=== PATIENT | male | born 1985 | race Two or more races ===

== ENCOUNTER 2016-11-07 01:30 | Emergency (ER) | payer OTHER ==
[~2016-11-07] VITALS: Ht 170.2 cm; Wt 63.0 kg
[~2016-11-07 01:30] MED LIST: Amox Tr/Potassium Clavulanate PO; DIVA125C PO; DULO60CA45 PO; FAMO20TA8 PO; QUET100T PO
[2016-11-07 01:39] VITALS: BP 135/70
[2016-11-07] MEDS ORDERED: ONDANSETRON HCL/PF 4 MG/2 ML VIAL ONE (01:40)
[2016-11-07] MEDS ORDERED: ONDANSETRON HCL/PF 4 MG/2 ML VIAL IM ONE (02:00)
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
== END 2016-11-07 02:44 | disposition home or self-care (01) ==
LOC: ER 01:33
DX: R11.2 Nausea with vomiting, unspecified (principal)
CPT/HCPCS: 96372; 99283; A4606; J2405; Z7610

== ENCOUNTER 2017-01-07 01:20 | Emergency (ER) | payer OTHER ==
[~2017-01-07] VITALS: Ht 157.5 cm; Wt 63.5 kg
[~2017-01-07 01:20] MED LIST changes: -Amox Tr/Potassium Clavulanate PO
--- NOTE | 2017-01-07 01:31 | NUR ---
PT BIB SELF, AMBULATORY TO ER BED 9. PT STATES HE IS FEELING SUICIDAL AND WANTS TO GO TO BE ADMITTED TO [facility]. PT AOX3 RR EVEN AND UNLABORED. NO SOB NOTED NAD NOTED. NO NVD AT THIS TIME. PT STATES ' I HAVE ON AND OFF THOUGHTS OF SI BUT NO PLAN" DENIES HI. PT RELAXED AND COMPLIANT. PT PLACED ON SUICIDE PRECAUTION. URINE COLLECTED.
--- NOTE | 2017-01-07 01:40 | NUR ---
LAB AT BEDSIDE FOR BLOOD DRAW.
[2017-01-07 01:59] LABS: APPEARANCE,URINE CLEAR (CLEAR); BILIRUBIN,URINE NEGATIVE (NEGATIVE); BLOOD, URINE NEGATIVE Ery/uL (NEGATIVE); COLOR,URINE YELLOW (YELLOW); KETONES,URINE NEGATIVE (NEGATIVE); LEUKOCYTE ESTERASE ,URINE NEGATIVE (NEGATIVE); NITRITE, URINE NEGATIVE (NEGATIVE); PROTEIN,URINE NEGATIVE (NEGATIVE); UGLUCOSE NEGATIVE (NEGATIVE); UROBILINOGEN,URINE 0.2 EU/dL (0.2)
[2017-01-07 02:02] LABS: BASOPHILS # (AUTO) 0.1 /CMM (0.0-0.2); BASOPHILS % (AUTO) 0.5 % (0.0-2.0); HEMATOCRIT 42 % (39-51); HEMOGLOBIN 14.1 g/dL (13.5-17.5); LYMPHOCYTES # (AUTO) 2.3 /CMM (0.8-4.8); LYMPHOCYTES % (AUTO) 9.2 % (20.0-44.0); MEAN CORPUSCULAR HEMOGLOBIN 30 PG (26.0-33.0); MEAN CORPUSCULAR HGB CONC 34 g/dl (31.0-36.0); MEAN CORPUSCULAR VOLUME 90 fL (80-96); MONOCYTES # (AUTO) 0.9 /CMM (0.1-1.30); MONOCYTES % (AUTO) 3.6 % (2.0-12.0); NEUTROPHILS # (AUTO) 21.4 /CMM (1.8-8.9); NEUTROPHILS % (AUTO) 86.7 % (43.0-81.0); PLATELET COUNT (AUTO) 371 /CMM (150-450); RDW COEFFICIENT OF VARIATION 14.6 (11.5-15.0); RED BLOOD CELL COUNT(AUTO) 4.69 MIL/uL (4.5-6.0); WHITE BLOOD COUNT (AUTO) 24.7 K/uL (4.3-11.0)
[2017-01-07 02:09] LABS: CALCIUM, SERUM 8.9 mg/dL (8.5-10.1); CARBON DIOXIDE 30 mmol/L (21-32); CHLORIDE 104 mmol/L (98-107); CREATININE 0.8 mg/dL (0.6-1.3); GLUCOSE 107 mg/dL (74-106); POTASSIUM 3.7 mmol/L (3.5-5.1); SODIUM SERUM 142 mmol/L (136-145); UREA NITROGEN, BLOOD 17 mg/dL (7-18)
[2017-01-07 02:13] LABS: ALANINE AMINOTRANSFERASE 24 U/L (12-78); ALBUMIN 4.2 g/dL (3.4-5.0); ALKALINE PHOSPHATASE 98 U/L (46-116); ASPARTATE AMINOTRANSFERASE 12 U/L (15-37); BILIRUBIN,TOTAL 0.2 mg/dL (0.2-1.0); SALICYLATE 4.9 mg/dL (2.8-20.0); TOTAL PROTEIN, SERUM 7.7 g/dL (6.4-8.2)
[2017-01-07 02:15] LABS: ACETAMINOPHEN 0 ug/ml (10-30); ALCOHOL, BLOOD < 3 mg/dL (0-0)
[2017-01-07 03:00] LABS: BAND % (MANUAL) 5 % (0.0-5.0); LYMPHOCYTES % (MANUAL) 11 % (16-48); MONOCYTES % (MANUAL) 4 % (0-11.0); NEUTROPHILS % (MANUAL) 80 (42-76)
--- NOTE | 2017-01-07 03:12 | NUR ---
ART AT BEDSIDE FOR EVAL.
[2017-01-07] MEDS ORDERED: AZITHROMYCIN 250 MG TABLET PO ONE (03:30)
[2017-01-07] MEDS ORDERED: AZITHROMYCIN 250 MG TABLET ONE (03:49)
--- NOTE | 2017-01-07 04:06 | NUR ---
Patient discharged to home in stable condition. Written and verbal after care instructions given. Patient verbalizes understanding of instruction. ambulatory with a steady gait. instructed pt not to drive. pt verbalize understanding.
[2017-01-07 04:10] VITALS: BP 109/78
== END 2017-01-07 04:11 | disposition home or self-care (01) ==
LOC: ER 01:21
DX: F32.9 Major depressive disorder, single episode, unspecified (principal); J18.9 Pneumonia, unspecified organism; Z88.0 Allergy status to penicillin; Z88.2 Allergy status to sulfonamides; F17.200 Nicotine dependence, unspecified, uncomplicated; F25.9 Schizoaffective disorder, unspecified
CPT/HCPCS: 36415; 71010-TC; 80048-TC; 80076-TC; 80305; 81000-TC; 85025-TC; A4606; G0480; Z7610

== ENCOUNTER 2017-02-04 14:05 | Emergency (ER) | payer OTHER ==
[~2017-02-04] VITALS: Ht 162.6 cm; Wt 68.0 kg
[2017-02-04 14:29] VITALS: BP 145/87
== END 2017-02-04 15:08 | disposition home or self-care (01) ==
LOC: ER 14:08
DX: G89.29 Other chronic pain (principal)
CPT/HCPCS: 99283; A4606; Z7610

== ENCOUNTER 2017-02-10 02:59 | Emergency (ER) | payer OTHER ==
[~2017-02-10] VITALS: Ht 157.5 cm; Wt 68.0 kg
--- NOTE | 2017-02-10 03:50 | NUR ---
TO BED 12 A 31 YO MALE PATIENT BB SELF; SI WITH PLAN; I WANT TO EAT RAT POISON. WITH PSYCH HISTORY. NAD NOTED. VSS. AMBULATORY WITH STEADY GAIT. SAFETY AND SUICIDE PRECAUTIONS IMPLEMENTED.
[2017-02-10 04:49] LABS: BASOPHILS # (AUTO) 0.2 /CMM (0.0-0.2); BASOPHILS % (AUTO) 1.3 % (0.0-2.0); EOSINOPHILS # (AUTO) 0.6 /CMM (0.0-0.7); EOSINOPHILS % (AUTO) 3.9 % (0.0-6.0); HEMATOCRIT 41 % (39-51); HEMOGLOBIN 13.4 g/dL (13.5-17.5); LYMPHOCYTES # (AUTO) 4.1 /CMM (0.8-4.8); LYMPHOCYTES % (AUTO) 28.6 % (20.0-44.0); MEAN CORPUSCULAR HEMOGLOBIN 30 PG (26.0-33.0); MEAN CORPUSCULAR HGB CONC 33 g/dl (31.0-36.0); MEAN CORPUSCULAR VOLUME 91 fL (80-96); MONOCYTES # (AUTO) 1.3 /CMM (0.1-1.30); MONOCYTES % (AUTO) 9.3 % (2.0-12.0); NEUTROPHILS # (AUTO) 8.2 /CMM (1.8-8.9); NEUTROPHILS % (AUTO) 56.9 % (43.0-81.0); PLATELET COUNT (AUTO) 365 /CMM (150-450); RDW COEFFICIENT OF VARIATION 14.5 (11.5-15.0); WHITE BLOOD COUNT (AUTO) 14.4 K/uL (4.3-11.0)
[2017-02-10] MEDS ORDERED: OLANZAPINE 5 MG/TAB.RAPDIS PO ONE (05:00)
[2017-02-10] MEDS ORDERED: OLANZAPINE 5 MG/TAB.RAPDIS ONE (05:01)
[2017-02-10] MEDS ORDERED: OLANZAPINE 5 MG TABLET ONE (05:02)
[2017-02-10 05:03] LABS: CALCIUM, SERUM 9.3 mg/dL (8.5-10.1); CARBON DIOXIDE 30 mmol/L (21-32); CHLORIDE 100 mmol/L (98-107); CREATININE 0.8 mg/dL (0.6-1.3); GLUCOSE 100 mg/dL (74-106); SODIUM SERUM 138 mmol/L (136-145); UREA NITROGEN, BLOOD 14 mg/dL (7-18)
[2017-02-10 05:05] LABS: APPEARANCE,URINE CLEAR (CLEAR); BILIRUBIN,URINE NEGATIVE (NEGATIVE); BLOOD, URINE NEGATIVE Ery/uL (NEGATIVE); COLOR,URINE YELLOW (YELLOW); KETONES,URINE NEGATIVE (NEGATIVE); LEUKOCYTE ESTERASE ,URINE NEGATIVE (NEGATIVE); NITRITE, URINE NEGATIVE (NEGATIVE); PROTEIN,URINE TRACE mg/dl (NEGATIVE); UGLUCOSE NEGATIVE (NEGATIVE); UROBILINOGEN,URINE 0.2 EU/dL (0.2)
[2017-02-10 05:08] LABS: ACETAMINOPHEN 0 ug/ml (10-30); ALANINE AMINOTRANSFERASE 27 U/L (12-78); ALCOHOL, BLOOD < 3 mg/dL (0-0); ALKALINE PHOSPHATASE 112 U/L (46-116); ASPARTATE AMINOTRANSFERASE 36 U/L (15-37); BILIRUBIN,DIRECT 0.1 mg/dL (0.0-0.2); BILIRUBIN,TOTAL 0.7 mg/dL (0.2-1.0); SALICYLATE 1.7 mg/dL (2.8-20.0); TOTAL PROTEIN, SERUM 7.5 g/dL (6.4-8.2)
[2017-02-10] MEDS ORDERED: OLANZAPINE 5 MG TABLET PO ONE (05:30)
[2017-02-10 05:33] LABS: INR 1.03 (0.87-1.13); PROTHROMBIN TIME 10.7 SECS (9.5-12.7)
[2017-02-10 05:34] LABS: BACTERIA,URINE None seen /HPF (None Seen); MUCUS,URINE Few /LPF (None Seen); RBC,URINE NONE SEEN /HPF (0-2); SQUAMOUS EPITHELIAL CELL,UR Few /HPF (None Seen); WBC,URINE 0-2 /HPF (0-3)
--- NOTE | 2017-02-10 07:04 | NUR ---
NAD NOTED. VSS. PATIENT IS SEEN RESTING. AWAITING FOR PSYCH EVAL.
--- NOTE | 2017-02-10 09:09 | NUR ---
sidney rn called for eval eta 1 hour
--- NOTE | 2017-02-10 11:25 | NUR ---
Patient is resting comfortably in bed with eyes closed. Easily aroused. VSS
--- NOTE | 2017-02-10 11:45 | NUR ---
PT ACCEPTED AT [facility]. DR SANTIAGO ACCEPTING. NUMBER FOR REPORT [phone] EXT [phone]
--- NOTE | 2017-02-10 11:51 | NUR ---
SPOKE WITH [place] FROM POISON CONTROL, RECOMMENDATION: PT INR FOR THE NEXT 3 DAYS Q12 D/T ANTICOAG EFFECT OF RAT POISON INTAKE.
--- NOTE | 2017-02-10 12:02 | NUR ---
report given to yumiko.
[2017-02-10 12:08] VITALS: BP 112/63
== END 2017-02-10 12:13 ==
LOC: ER 02:59
DX: T65.0X Toxic effect of cyanides (principal); R79.1 Abnormal coagulation profile; F15.10 Other stimulant abuse, uncomplicated; F12.10 Cannabis abuse, uncomplicated; F25.9 Schizoaffective disorder, unspecified; F17.200 Nicotine dependence, unspecified, uncomplicated; F32.9 Major depressive disorder, single episode, unspecified; Z88.0 Allergy status to penicillin; Z88.2 Allergy status to sulfonamides
CPT/HCPCS: 36415; 80048; 80076; 80305; 80329; 81001; 85025; 85610; 85730; 99285; A4606; G0480 ×2; Z7610; 81000-TC

== ENCOUNTER 2017-07-08 04:18 | Inpatient (IN) | payer OTHER ==
[~2017-07-08] VITALS: Ht 162.6 cm; Wt 61.2 kg
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
--- NOTE | 2017-07-08 04:59 | NUR ---
AT BEDSIDE FOR EVAL.
[2017-07-08 05:03] LABS: BASOPHILS # (AUTO) 0.1 /CMM (0.0-0.2); BASOPHILS % (AUTO) 0.7 % (0.0-2.0); EOSINOPHILS # (AUTO) 0.5 /CMM (0.0-0.7); EOSINOPHILS % (AUTO) 3.8 % (0.0-6.0); HEMATOCRIT 40 % (39-51); HEMOGLOBIN 13.5 g/dL (13.5-17.5); LYMPHOCYTES % (AUTO) 23.5 % (20.0-44.0); MEAN CORPUSCULAR HEMOGLOBIN 30 PG (26.0-33.0); MEAN CORPUSCULAR HGB CONC 34 g/dl (31.0-36.0); MEAN CORPUSCULAR VOLUME 88 fL (80-96); MONOCYTES # (AUTO) 0.7 /CMM (0.1-1.30); MONOCYTES % (AUTO) 5.3 % (2.0-12.0); NEUTROPHILS # (AUTO) 8.4 /CMM (1.8-8.9); NEUTROPHILS % (AUTO) 66.7 % (43.0-81.0); PLATELET COUNT (AUTO) 410 /CMM (150-450); RED BLOOD CELL COUNT(AUTO) 4.55 MIL/uL (4.5-6.0); WHITE BLOOD COUNT (AUTO) 12.6 K/uL (4.3-11.0)
[2017-07-08 05:15] LABS: CALCIUM, SERUM 9.6 mg/dL (8.5-10.1); CARBON DIOXIDE 27 mmol/L (21-32); CHLORIDE 101 mmol/L (98-107); CREATININE 0.9 mg/dL (0.6-1.3); GLUCOSE 111 mg/dL (74-106); POTASSIUM 3.7 mmol/L (3.5-5.1); SODIUM SERUM 139 mmol/L (136-145); UREA NITROGEN, BLOOD 23 mg/dL (7-18)
[2017-07-08 05:20] LABS: ALANINE AMINOTRANSFERASE 23 U/L (12-78); ALBUMIN 4.2 g/dL (3.4-5.0); ALCOHOL, BLOOD < 3 mg/dL (0-0); ALKALINE PHOSPHATASE 95 U/L (46-116); ASPARTATE AMINOTRANSFERASE 34 U/L (15-37); BILIRUBIN,DIRECT 0.1 mg/dL (0.0-0.2); BILIRUBIN,TOTAL 0.4 mg/dL (0.2-1.0); TOTAL PROTEIN, SERUM 7.9 g/dL (6.4-8.2)
[2017-07-08 05:24] LABS: ACETAMINOPHEN 0 ug/ml (10-30)
[2017-07-08 05:25] LABS: SALICYLATE 25.4 mg/dL (2.8-20.0)
[2017-07-08] MEDS ORDERED: ACTIVATED CHARCOAL 25 GM/120 ML TUBE ONE (05:52)
[2017-07-08] MEDS ORDERED: ACTIVATED CHARCOAL 25 GM/120 ML TUBE PO ONE (06:00)
--- NOTE | 2017-07-08 06:04 | NUR ---
PT REFUSED ACTIVATED CHARCOAL. RISK AND BENEFITS EXPLAINED X3. PT STRONGLY REFUSED. DR. CUEVAS MADE AWARE
[2017-07-08 06:15] LABS: APPEARANCE,URINE CLEAR (CLEAR); BILIRUBIN,URINE NEGATIVE (NEGATIVE); BLOOD, URINE NEGATIVE Ery/uL (NEGATIVE); COLOR,URINE YELLOW (YELLOW); KETONES,URINE 1+ (NEGATIVE); LEUKOCYTE ESTERASE ,URINE NEGATIVE (NEGATIVE); NITRITE, URINE NEGATIVE (NEGATIVE); PH,URINE 5.5 (5.0-8.0); PROTEIN,URINE NEGATIVE (NEGATIVE); UGLUCOSE NEGATIVE (NEGATIVE); UROBILINOGEN,URINE 0.2 EU/dL (0.2)
[2017-07-08 06:19] LABS: BACTERIA,URINE None seen /HPF (None Seen); RBC,URINE 0-2 /HPF (0-2); SQUAMOUS EPITHELIAL CELL,UR 0-2 /HPF (None Seen); WBC,URINE 0-2 /HPF (0-3)
--- NOTE | 2017-07-08 06:28 | NUR ---
DONELL PAGED AGAIN
--- NOTE | 2017-07-08 06:30 | NUR ---
DR. MARLEY SPEAKING TO DR. CUEVAS REGARDING POC/ ADMISSION
--- NOTE | 2017-07-08 06:48 | NUR ---
REPORT GIVEN TO CHRISTY
[2017-07-08] MEDS ORDERED: MAGNESIUM HYDROXIDE 30 ML UDC PO PRN (07:00)
[2017-07-08] MEDS ORDERED: ACETAMINOPHEN 325 MG TABLET PO PRN (07:00)
[2017-07-08] MEDS ORDERED: MAG HYDROX/AL HYDROX/SIMETH 30 ML UDC PO PRN (07:00)
[2017-07-08] MEDS ORDERED: Z GUARD REMEDY 2 OZ OINT TP PRN (07:00)
[2017-07-08] MEDS ORDERED: ONDANSETRON HCL/PF 4 MG/2 ML VIAL IVP PRN (07:00)
--- NOTE | 2017-07-08 07:30 | NUR ---
HARDWARE PRESS OPERATOR NOTES RECEIVED PT FROM ER. REPORT WAS GIVEN BY CHRISTY. PT VITAL SIGNS ARE STABLE, BUT PT IS CONFUSED AND AGITATED AT TIMES. WILL CONTINUE TO MONITOR PT CLOSELY.
--- NOTE | 2017-07-08 07:31 | NUR ---
MILL OPERATOR NOTES PT REFUSED TO BE ASSESSED REGARDING WOUNDS IN HIS BODY. EXPLAINED THE RISK AND BENEFITS OF CHECKING THE WOUNDS. PT STILL REFUSED.
[2017-07-08 07:43] VITALS: BP 109/67
[2017-07-08 08:00] VITALS: BP 109/67
--- NOTE | 2017-07-08 08:14 | NUR ---
SIZER HAND NOTES PT REFUSING TO HAVE IV ACCESS. EXPLAINED THE RISK AND BENEFITS. VERBALIZED THAT HE WANTS TO SLEEP. WILL TRY AGAIN LATER.
[2017-07-08] MEDS: IV NS 0.9% 1,000 ML IV SCH ×2 (08:51→17:12)
--- NOTE | 2017-07-08 11:52 | NUR ---
FILAMENT WELDER NOTES DR VALLES SEEN THE PT. ORDERED REPEAT SALICYLATE LEVEL. PSYCH CONSULT ONCE SALICYLATE LEVEL IS NORMAL.
[2017-07-08 12:00] VITALS: BP 95/56
--- NOTE | 2017-07-08 12:00 | NUR ---
NECKTIE TURNER NOTES CALLED DR GARCIA REGARDING PT CONSULTATION. LEAVED A MESSAGEDON HIS MAILBOX
[2017-07-08 16:00] VITALS: BP 98/52
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
--- NOTE | 2017-07-08 17:48 | NUR ---
DOPE EDGER NOTES CALLED [facility] REGARDING PT DISCHARGE ORDER.
--- NOTE | 2017-07-08 18:27 | NUR ---
SURVEY WORKERS SUPERVISOR CLOSING NOTES NO ACUTE CHANGES NOTED DURING THE SHIFT. PROVIDED COMFORT AND SAFERT. DUE MEDS GIVEN. WILL ENDORSE TO THE PM NURSE FOR PING.
--- NOTE | 2017-07-08 19:30 | NUR ---
DEMAND MANAGER NOTES NO SUICIDAL THOUGHTS NOTED DURING THE SHIFT. ENDORSE TO JACOBO MATTSON REGARDING PT DISCHARGE PLAN.
--- NOTE | 2017-07-08 19:35 | NUR ---
TELE/RN NOTES RECEIVED PT. LYING IN BED. PT. IS AWAKE, ALERT AND ORIENTED X4. BREATHING EVEN AND UNLABORED ON ROOM AIR. NO SOB, RESPIRATORY DISTRESS OR COMPLAINTS OF PAIN NOTED AT THIS TIME. PT. DENIES ANY SUICIDAL OR HOMICIDAL THOUGHTS AT THIS TIME. PT. REMOVED EXTERNAL DRYWALL FINISHING FOREMAN AND IS REFUSING TO HAVE IT PLACED BACK ON. PT. WITH LEFT WRIST 20 GAUGE IV SALINE LOCK PRESENT, PATENT AND INTACT. PER DAYSHIFT NURSE PT. IS GOING TO BE DISCHARGED AT 8:30 PM TO [facility] FOR REHAB MEDICINE. PT. IS REFUSING TAXI VOUCHER TO THE [place] AD[facility] WHICH [facility] [address] [facility] [place] [id number] AND WANTS TO LEAVE BY BUS AND HAS REQUESTED BUS TOKENS. PER DAYSHIFT NURSE PT. EXITCARE, BELONGINGS LIST ARE COMPLETES, ORIGINALS ARE SIGNED AND PLACED IN PT. CHART. WILL PROVIDE COPIES OF EXITCARE, BELONGINGS LIST AND DISCHARGE INSTRUCTIONS TO PT. WILL CONTINUE TO MONITOR.
[2017-07-08 20:00] VITALS: BP 105/59
--- NOTE | 2017-07-08 20:29 | NUR ---
TELE/RN NOTES PT. IN STABLE CONDITION. VITAL SIGNS STABLE AND WNL. PT. IS AWAKE, ALERT AND ORIENTED X4. BREATHING EVEN AND UNLABORED ON ROOM AIR. NO SOB, RESPIRATORY DISTRESS OR COMPLAINTS OF PAIN NOTED AT THIS TIME. PT. DENIES ANY SUICIDAL OR HOMICIDAL THOUGHTS AT THIS TIME. REMOVED PT. IV ACCESS. NO BLEEDING OR S/S OF INFECTION NOTED AT IV SITE. PT. PROVIDED WITH COPIES OF EXITCARE, BELONGINGS LIST AND DISCHARGE INSTRUCTIONS. BUS TOKENS PROVIDED TO PT. PT. LEFT THE FLOOR VIA WHEELCHAIR ACCOMPANIED BY SPLITTER TENDER AT 2028.
== END 2017-07-08 20:30 | disposition home or self-care (01) | DRG 812 ==
LOC: ER 04:21 → TELE-TD 06:52 → TELE1 07:09
PROVIDERS: ADMIT Internal Medicine; ATTEND Internal Medicine
DX: T39.011A Poisoning by aspirin, accidental (unintentional), initial encounter (principal); F20.9 Schizophrenia, unspecified; F32.9 Major depressive disorder, single episode, unspecified; F17.200 Nicotine dependence, unspecified, uncomplicated; F19.10 Other psychoactive substance abuse, uncomplicated; Y92.009 Unspecified place in unspecified non-institutional (private) residence as the place of occurrence of the external cause; Z79.899 Other long term (current) drug therapy; Z59.0 Homelessness; R51 Headache; F29 Unspecified psychosis not due to a substance or known physiological condition
CPT/HCPCS: 36415; 80048-TC; 80076-TC; 80305; 81000-TC; 85025-TC; A4606; G0480; J3490; J7030; Z7610

== ENCOUNTER 2019-07-13 06:13 | Emergency (ER) | payer OTHER ==
[~2019-07-13] VITALS: Ht 152.4 cm; Wt 59.0 kg
[~2019-07-13 06:13] MED LIST changes: -DIVA125C PO; +DIVA125C2 PO
--- NOTE | 2019-07-13 06:46 | NUR ---
PATIENT CAME TO ER BED 14 C/O OVERDOSE ON METH. PATIENT STATE, "I OVERDOSED ON DOPE, I HAD 2 GRAMS OF DOPE." PT IS AAOX3. NO SOB. BREATHING EVENLY AND UNLABORED. CONNECTED TO MONITOR.
[2019-07-13] MEDS ORDERED: OLANZAPINE 5 MG TABLET ONE (06:52)
[2019-07-13] MEDS ORDERED: LORAZEPAM INJ 2 MG/ML VIAL ONE ×3 (06:53→13:36)
--- NOTE | 2019-07-13 06:59 | NUR ---
ATIVAN [address]
[2019-07-13] MEDS ORDERED: LORAZEPAM INJ 2 MG/ML VIAL IM ONE ×2 (07:00→13:30)
[2019-07-13] MEDS ORDERED: OLANZAPINE 5 MG TABLET PO ONE (07:00)
[2019-07-13 07:18] LABS: BASOPHILS # (AUTO) 0.1 /CMM (0.0-0.2); BASOPHILS % (AUTO) 1.5 % (0.0-2.0); EOSINOPHILS % (AUTO) 3.7 % (0.0-6.0); HEMATOCRIT 42 % (39-51); HEMOGLOBIN 13.4 g/dL (13.5-17.5); LYMPHOCYTES % (AUTO) 27.1 % (20.0-44.0); MEAN CORPUSCULAR HGB CONC 32 g/dl (31.0-36.0); MEAN CORPUSCULAR VOLUME 86 fL (80-96); MONOCYTES # (AUTO) 0.9 /CMM (0.1-1.30); MONOCYTES % (AUTO) 12.6 % (2.0-12.0); NEUTROPHILS % (AUTO) 55.1 % (43.0-81.0); PLATELET COUNT (AUTO) 430 /CMM (150-450); RED BLOOD CELL COUNT(AUTO) 4.84 MIL/uL (4.5-6.0); WHITE BLOOD COUNT (AUTO) 7.2 K/uL (4.3-11.0)
--- NOTE | 2019-07-13 07:35 | NUR ---
PATIENT VERBALIZES SI, PLAN TO OVERDOSE ON DRUGS. MD AWARE.
[2019-07-13 07:37] LABS: CALCIUM, SERUM 9.5 mg/dL (8.5-10.1); CARBON DIOXIDE 28 mmol/L (21-32); CHLORIDE 100 mmol/L (98-107); CREATININE 0.8 mg/dL (0.6-1.3); GLUCOSE 86 mg/dL (74-106); POTASSIUM 3.2 mmol/L (3.5-5.1); SODIUM SERUM 139 mmol/L (136-145); UREA NITROGEN, BLOOD 16 mg/dL (7-18)
[2019-07-13 07:43] LABS: ALANINE AMINOTRANSFERASE 14 U/L (12-78); ALBUMIN 4.1 g/dL (3.4-5.0); ALKALINE PHOSPHATASE 111 U/L (46-116); ASPARTATE AMINOTRANSFERASE 20 U/L (15-37); BILIRUBIN,DIRECT 0.1 mg/dL (0.0-0.2); BILIRUBIN,TOTAL 0.5 mg/dL (0.2-1.0); TOTAL PROTEIN, SERUM 7.7 g/dL (6.4-8.2)
[2019-07-13 07:45] LABS: ACETAMINOPHEN 0 ug/ml (10-30); ALCOHOL, BLOOD < 3 mg/dL (0-0); SALICYLATE 1.7 mg/dL (2.8-20.0)
--- NOTE | 2019-07-13 08:49 | NUR ---
BREAKFAST TRAY PROVIDED, PATIENT TOLERATED PO WELL.
[2019-07-13 09:03] LABS: APPEARANCE,URINE CLEAR (CLEAR); BILIRUBIN,URINE SMALL (NEGATIVE); BLOOD, URINE NEGATIVE Ery/uL (NEGATIVE); COLOR,URINE YELLOW (YELLOW); KETONES,URINE TRACE (NEGATIVE); LEUKOCYTE ESTERASE ,URINE NEGATIVE (NEGATIVE); NITRITE, URINE NEGATIVE (NEGATIVE); PH,URINE 5.5 (5.0-8.0); PROTEIN,URINE 30 mg/dl (NEGATIVE); UGLUCOSE NEGATIVE (NEGATIVE); UROBILINOGEN,URINE 0.2 EU/dL (0.2)
[2019-07-13 09:07] LABS: BACTERIA,URINE Few /HPF (None Seen); MUCUS,URINE Many /LPF (None Seen); RBC,URINE 0-2 /HPF (0-2); SPERM,URINE Few /HPF (None Seen); SQUAMOUS EPITHELIAL CELL,UR Few /HPF (None Seen)
--- NOTE | 2019-07-13 10:41 | NUR ---
Pt Medically cleared for Crisis Form Stripper initial contact made with Darren Dhaliwal
--- NOTE | 2019-07-13 10:53 | NUR ---
Per Art Pt defer to SW-Call made to MARCELO Back
[2019-07-13] MEDS ORDERED: diphenhydrAMINE HCL 50 MG/ML VIAL IM ONE (11:00)
[2019-07-13] MEDS ORDERED: OLANZAPINE 10 MG VIAL IM ONE ×4 (11:00→13:35)
[2019-07-13] MEDS ORDERED: LORAZEPAM INJ 2 MG/ML VIAL IV ONE (11:00)
[2019-07-13] MEDS ORDERED: diphenhydrAMINE HCL 50 MG/ML VIAL ONE (11:03)
--- NOTE | 2019-07-13 12:06 | NUR ---
Social service consult requested by ER staff for drug overdose and suicidal ideation. Pt is a 34 year old male who was admitted to [facility] ER for homelessness. MARCELO met with pt at bedside. Pt was laying down in his bed and appeared disheveled. Pt was awake. SW asked pt if he was suicidal, pt said "yes." SW worker inquired about plan to overdose, and pt confirmed plan. MARCELO informed pt about referral to [facility] [[facility] MARCELO spoke with Darren Dhaliwal, Crisis Team, who confirmed that a referral needs to be made to [facility] [[address] [place] [address]; [phone]]. MARCELO faxed intake clinicals to community services coordinator at [phone]. MARCELO spoke with community services coordinator at [phone] who informed SW that the referral is being reviewed and will call back to confirm pts admission to psychiatric hospital. MARCELO will inform ER once pt is admitted to facility and transportation is confirmed.
--- NOTE | 2019-07-13 12:38 | NUR ---
SW received a call from Carmen, college admissions counselor at [facility] [[address] [place] [address]; [phone]], and was informed that pt will be admitted to the facility. The accepting doctor is Dr. Hiltno Robins, and the assigned room is 203-bed B. Follow-up information can be given to Unit 2 Charge Nurse at [[phone]]. Pt will be picked up by [facility] in about 45 minutes. No other services needed at this time. SW available if needed.
--- NOTE | 2019-07-13 12:40 | NUR ---
SPOKED TO BRITTANY ROBERTSON PT IS ACCEPTED TO [facility] GOING TO UNIT 2 ROOM 203-B NUMBER FOR REPORT: [phone] AMBULANCE ETA: 40MINS
--- NOTE | 2019-07-13 13:55 | NUR ---
[facility].
[2019-07-13 14:01] VITALS: BP 96/52
--- NOTE | 2019-07-13 14:10 | NUR ---
PATIENT PICKED UP BY [facility] UNIT 148 IN STABLE CONDITION. DOCUMENTS HANDED TO EMS TO PROVIDE TO [facility].
== END 2019-07-13 14:15 ==
LOC: ER 06:14
DX: F19.959 Other psychoactive substance use, unspecified with psychoactive substance-induced psychotic disorder, unspecified (principal); F15.10 Other stimulant abuse, uncomplicated; R45.851 Suicidal ideations; F17.200 Nicotine dependence, unspecified, uncomplicated; Z60.2 Problems related to living alone; Z79.899 Other long term (current) drug therapy
CPT/HCPCS: 36415; 80048; 80076; 80305; 80307; 80329; 81001; 85025; 87086; 96372 ×2; 99285; G0480; J1200; J2060 ×3; J3490 ×2; 81000-TC

== ENCOUNTER 2019-12-13 03:50 | Emergency (ER) | payer OTHER ==
[~2019-12-13] VITALS: Ht 152.4 cm; Wt 56.7 kg
--- NOTE | 2019-12-13 04:20 | NUR ---
PT BIBS C/O "I'M ALL DRUGGED OUT, I HAVE CHEST PAIN" TO ER BED 11 VSS
[2019-12-13] MEDS ORDERED: NITROGLYCERIN PACKET 1 GM PACKET TD ONE (04:30)
[2019-12-13] MEDS ORDERED: HALOPERIDOL LACTATE INJ 5 MG/ML VIAL IV ONE (04:30)
[2019-12-13] MEDS ORDERED: LORAZEPAM INJ 2 MG/ML VIAL IV ONE (04:30)
[2019-12-13] MEDS ORDERED: IV NS 0.9% 1,000 ML BAG IV ONE (04:30)
[2019-12-13] MEDS ORDERED: ASPIRIN 81 MG TAB.CHEW PO ONE (04:30)
[2019-12-13] MEDS ORDERED: LORAZEPAM INJ 2 MG/ML VIAL ONE (04:53)
[2019-12-13] MEDS ORDERED: NITROGLYCERIN PACKET 1 GM PACKET ONE (04:54)
[2019-12-13] MEDS ORDERED: ASPIRIN EC 81 MG TABLET.DR PO ONE (04:54)
[2019-12-13] MEDS ORDERED: HALOPERIDOL LACTATE INJ 5 MG/ML VIAL ONE (04:54)
[2019-12-13 05:00] LABS: BASOPHILS # (AUTO) 0.1 /CMM (0.0-0.2); BASOPHILS % (AUTO) 1.1 % (0.0-2.0); EOSINOPHILS % (AUTO) 2.6 % (0.0-6.0); HEMATOCRIT 39 % (39-51); HEMOGLOBIN 12.3 g/dL (13.5-17.5); LYMPHOCYTES # (AUTO) 2.2 /CMM (0.8-4.8); LYMPHOCYTES % (AUTO) 25.9 % (20.0-44.0); MEAN CORPUSCULAR HGB CONC 32 g/dl (31.0-36.0); MEAN CORPUSCULAR VOLUME 85 fL (80-96); MONOCYTES # (AUTO) 1.1 /CMM (0.1-1.30); MONOCYTES % (AUTO) 12.9 % (2.0-12.0); NEUTROPHILS # (AUTO) 4.9 /CMM (1.8-8.9); NEUTROPHILS % (AUTO) 57.5 % (43.0-81.0); PLATELET COUNT (AUTO) 420 /CMM (150-450); RED BLOOD CELL COUNT(AUTO) 4.51 MIL/uL (4.5-6.0); WHITE BLOOD COUNT (AUTO) 8.6 K/uL (4.3-11.0)
[2019-12-13 05:17] LABS: CALCIUM, SERUM 9.2 mg/dL (8.5-10.1); CARBON DIOXIDE 29 mmol/L (21-32); CHLORIDE 100 mmol/L (98-107); CREATININE 0.7 mg/dL (0.6-1.3); GLUCOSE 80 mg/dL (74-106); POTASSIUM 3.1 mmol/L (3.5-5.1); SODIUM SERUM 136 mmol/L (136-145); UREA NITROGEN, BLOOD 19 mg/dL (7-18)
[2019-12-13 05:21] LABS: ALANINE AMINOTRANSFERASE 19 U/L (12-78); ALBUMIN 3.9 g/dL (3.4-5.0); ALKALINE PHOSPHATASE 119 U/L (46-116); ASPARTATE AMINOTRANSFERASE 23 U/L (15-37); BILIRUBIN,DIRECT 0.2 mg/dL (0.0-0.2); BILIRUBIN,TOTAL 0.8 mg/dL (0.2-1.0); TOTAL PROTEIN, SERUM 7.5 g/dL (6.4-8.2)
--- NOTE | 2019-12-13 05:59 | NUR ---
ATTEMPTED TO WAKE UP PT TO ASK FOR URINE SAMPLE, PT IN DEEP SLEEP, AWARE
--- NOTE | 2019-12-13 07:26 | NUR ---
report given to vilma frederick for vasu
--- NOTE | 2019-12-13 07:41 | NUR ---
2nd TROPONIN DRAWN BY GOLD PROSPECTOR
--- NOTE | 2019-12-13 09:07 | NUR ---
SECURITY LOOKING FOR CLOTHES FOR PATIENT.
--- NOTE | 2019-12-13 09:21 | NUR ---
IV removed. Catheter intact and site benign. Pressure and 4x4 applied to site. No bleeding noted.Patient given written and verbal discharge instructions. Patient verbalizes understanding of instructions. Patient is ambulatory with steady gait. Refuses offer of long term placement. Patient given list of available shelters in surrounding area. Patient provided w proper clothing upon discharge. All belongings w patient, name band removed.
[2019-12-13 09:30] VITALS: BP 114/69
== END 2019-12-13 09:31 | disposition home or self-care (01) ==
LOC: ER 03:51
DX: R07.89 Other chest pain (principal); F17.200 Nicotine dependence, unspecified, uncomplicated; G89.29 Other chronic pain; F25.9 Schizoaffective disorder, unspecified; Z60.2 Problems related to living alone; Z79.899 Other long term (current) drug therapy
CPT/HCPCS: 36415; 71045; 80048; 80076; 84484 ×2; 85025; 93005 ×2; 96361; 96374; 96375; 99285; 99406; J1630; J2060; J7030

== ENCOUNTER 2019-12-21 23:12 | Emergency (ER) | payer OTHER ==
[~2019-12-21] VITALS: Ht 157.5 cm; Wt 59.0 kg
--- NOTE | 2019-12-21 23:30 | NUR ---
PT CAME TO THE ED C/O SI "OD ON DRUGS" -HI. PT REQUESTING CLEARANCE FOR VOLUNTARY PSYCH ADMISSION. PT AAOX4, VSS, RESPIRATIONS EVEN AND UNLABORED ON RA W/ NAD NOTED. PT CHANGED INTO GOWN, BELONGINGS PLACED TO LOCKER, SUICIDE PRECAUTIONS IMPLEMENTED. SITTER AT BEDSIDE FOR SAFETY
[2019-12-21 23:32] LABS: BASOPHILS # (AUTO) 0.2 /CMM (0.0-0.2); BASOPHILS % (AUTO) 1.4 % (0.0-2.0); EOSINOPHILS % (AUTO) 5.9 % (0.0-6.0); HEMATOCRIT 40 % (39-51); HEMOGLOBIN 12.9 g/dL (13.5-17.5); LYMPHOCYTES # (AUTO) 3.4 /CMM (0.8-4.8); LYMPHOCYTES % (AUTO) 26.4 % (20.0-44.0); MEAN CORPUSCULAR HGB CONC 32 g/dl (31.0-36.0); MEAN CORPUSCULAR VOLUME 85 fL (80-96); MONOCYTES # (AUTO) 1.5 /CMM (0.1-1.30); MONOCYTES % (AUTO) 11.4 % (2.0-12.0); NEUTROPHILS % (AUTO) 54.9 % (43.0-81.0); PLATELET COUNT (AUTO) 438 /CMM (150-450); RED BLOOD CELL COUNT(AUTO) 4.73 MIL/uL (4.5-6.0); WHITE BLOOD COUNT (AUTO) 12.7 K/uL (4.3-11.0)
[2019-12-21 23:35] LABS: APPEARANCE,URINE Clear (CLEAR); BILIRUBIN,URINE SMALL (NEGATIVE); BLOOD, URINE Negative Ery/uL (NEGATIVE); COLOR,URINE Yellow (YELLOW); KETONES,URINE Negative (NEGATIVE); LEUKOCYTE ESTERASE ,URINE Negative (NEGATIVE); NITRITE, URINE Negative (NEGATIVE); PROTEIN,URINE 100 mg/dl (NEGATIVE); UGLUCOSE Negative (NEGATIVE); UROBILINOGEN,URINE 0.2 EU/dL (0.2)
[2019-12-21 23:46] LABS: ALANINE AMINOTRANSFERASE 22 U/L (12-78); ALBUMIN 4.3 g/dL (3.4-5.0); ALKALINE PHOSPHATASE 130 U/L (46-116); ASPARTATE AMINOTRANSFERASE 26 U/L (15-37); BILIRUBIN,DIRECT 0.1 mg/dL (0.0-0.2); BILIRUBIN,TOTAL 0.5 mg/dL (0.2-1.0); CALCIUM, SERUM 10.1 mg/dL (8.5-10.1); CARBON DIOXIDE 30 mmol/L (21-32); CHLORIDE 98 mmol/L (98-107); CREATININE 0.9 mg/dL (0.6-1.3); GLUCOSE 135 mg/dL (74-106); SALICYLATE 0.6 mg/dL (2.8-20.0); SODIUM SERUM 137 mmol/L (136-145); TOTAL PROTEIN, SERUM 8.8 g/dL (6.4-8.2); UREA NITROGEN, BLOOD 13 mg/dL (7-18)
[2019-12-21 23:48] LABS: ACETAMINOPHEN < 2 ug/ml (10-30); ALCOHOL, BLOOD < 3 mg/dL (0-0)
[2019-12-21 23:54] LABS: BACTERIA,URINE Rare /HPF (None Seen); RBC,URINE NONE SEEN /HPF (0-2); SQUAMOUS EPITHELIAL CELL,UR Few /HPF (None Seen); WBC,URINE NONE SEEN /HPF (0-3)
[2019-12-22] MEDS ORDERED: POTASSIUM CHLORIDE 20 MEQ TAB.PRT.SR PO ONE (01:06)
[2019-12-22] MEDS: POTASSIUM CHLORIDE 20 MEQ TAB.PRT.SR PO ONE ×2 (01:08)
--- NOTE | 2019-12-22 04:13 | NUR ---
PT RESTING COMFORTABLY IN BED. VSS. NO ACUTE DISTRESS NOTED. SITTER AT BEDSIDE FOR SAFETY
--- NOTE | 2019-12-22 06:21 | NUR ---
PT ACCEPTED TO [facility] BY DR SANTIAGO. UNIT 2. # FOR REPORT [phone]
--- NOTE | 2019-12-22 06:26 | NUR ---
[facility] CALLED FOR TRANSPORT. # [phone]. PENDING ETA.
--- NOTE | 2019-12-22 06:34 | NUR ---
[facility] ETA 45-60 MIN
--- NOTE | 2019-12-22 06:36 | NUR ---
REPORT GIVEN TO TWILA GONZALEZ [facility] FOR PING
[2019-12-22 06:59] VITALS: BP 113/79
--- NOTE | 2019-12-22 07:08 | NUR ---
FOOD TRAY ORDERED FROM [facility]
--- NOTE | 2019-12-22 07:26 | NUR ---
PICKED UP BY [facility] UNIT 180 IN STABLE CONDITION. PATIENT WILL BE TRANSFERRED TO [facility]. CLINICALS PROVIDED TO EMS TO BE GIVEN TO THE HOSPITAL.
== END 2019-12-22 07:28 ==
LOC: ER 23:16
DX: R45.851 Suicidal ideations (principal); F15.10 Other stimulant abuse, uncomplicated; F25.9 Schizoaffective disorder, unspecified; F19.10 Other psychoactive substance abuse, uncomplicated; G89.29 Other chronic pain; Z60.2 Problems related to living alone; Z79.899 Other long term (current) drug therapy
CPT/HCPCS: 36415 ×2; 80048; 80076; 80305; 80307; 80329; 81001; 84132; 85025; 99285; G0480; 81000-TC

== ENCOUNTER 2019-12-30 23:16 | Emergency (ER) | payer OTHER ==
[~2019-12-30] VITALS: Ht 157.5 cm; Wt 52.2 kg
--- NOTE | 2019-12-30 23:19 | NUR ---
PATIENT CAME TO ER BED 13 C/O SUICIDAL IDEATIONPATIENT STATES, "I DON'T KNOW MAN, I'M SUICIDAL, I GUESS ON METH?" PATIENT IS AAOX4. NO SOB. BREATHING EVENLY AND UNLABORED ON ROOM AIR. PATIENT IS AMBULATORY WITH A STEADY GAIT. PATIENT'S ITEMS ARE REMOVED AND PLACED INTO A SAFE LOCKER. CHANGED INTO A GOWN.
[2019-12-30] MEDS ORDERED: LIDOCAINE 2% JEL UROJET 10 ML MM ONE (23:32)
--- NOTE | 2019-12-30 23:33 | NUR ---
PATIENT IS WANDED BY SECURITY.
--- NOTE | 2019-12-30 23:46 | NUR ---
URINE COLLECTED AND SENT TO THE LAB.
[2019-12-31 00:11] LABS: APPEARANCE,URINE CLEAR (CLEAR); BILIRUBIN,URINE NEGATIVE (NEGATIVE); BLOOD, URINE NEGATIVE Ery/uL (NEGATIVE); COLOR,URINE YELLOW (YELLOW); KETONES,URINE NEGATIVE (NEGATIVE); LEUKOCYTE ESTERASE ,URINE NEGATIVE (NEGATIVE); NITRITE, URINE NEGATIVE (NEGATIVE); PROTEIN,URINE TRACE mg/dl (NEGATIVE); UGLUCOSE NEGATIVE (NEGATIVE); UROBILINOGEN,URINE 0.2 EU/dL (0.2)
[2019-12-31 00:12] LABS: BASOPHILS # (AUTO) 0.2 /CMM (0.0-0.2); BASOPHILS % (AUTO) 2.8 % (0.0-2.0); EOSINOPHILS % (AUTO) 5.9 % (0.0-6.0); HEMATOCRIT 40 % (39-51); HEMOGLOBIN 12.7 g/dL (13.5-17.5); LYMPHOCYTES # (AUTO) 2.2 /CMM (0.8-4.8); LYMPHOCYTES % (AUTO) 25.6 % (20.0-44.0); MEAN CORPUSCULAR HGB CONC 32 g/dl (31.0-36.0); MEAN CORPUSCULAR VOLUME 85 fL (80-96); MONOCYTES # (AUTO) 0.7 /CMM (0.1-1.30); MONOCYTES % (AUTO) 8.2 % (2.0-12.0); NEUTROPHILS % (AUTO) 57.5 % (43.0-81.0); PLATELET COUNT (AUTO) 431 /CMM (150-450); RED BLOOD CELL COUNT(AUTO) 4.68 MIL/uL (4.5-6.0); WHITE BLOOD COUNT (AUTO) 8.6 K/uL (4.3-11.0)
[2019-12-31 00:19] LABS: RBC,URINE 0-2 /HPF (0-2); WBC,URINE 0-2 /HPF (0-3)
[2019-12-31 00:20] LABS: BACTERIA,URINE Few /HPF (None Seen); SQUAMOUS EPITHELIAL CELL,UR Few /HPF (None Seen)
[2019-12-31 00:31] LABS: ALANINE AMINOTRANSFERASE 20 U/L (12-78); ALBUMIN 3.9 g/dL (3.4-5.0); ALCOHOL, BLOOD < 3 mg/dL (0-0); ALKALINE PHOSPHATASE 116 U/L (46-116); ASPARTATE AMINOTRANSFERASE 20 U/L (15-37); BILIRUBIN,DIRECT 0.1 mg/dL (0.0-0.2); BILIRUBIN,TOTAL 0.5 mg/dL (0.2-1.0); CALCIUM, SERUM 9.2 mg/dL (8.5-10.1); CARBON DIOXIDE 31 mmol/L (21-32); CHLORIDE 99 mmol/L (98-107); CREATININE 0.9 mg/dL (0.6-1.3); GLUCOSE 106 mg/dL (74-106); SODIUM SERUM 137 mmol/L (136-145); TOTAL PROTEIN, SERUM 7.4 g/dL (6.4-8.2); UREA NITROGEN, BLOOD 16 mg/dL (7-18)
[2019-12-31 00:32] LABS: ACETAMINOPHEN 0 ug/ml (10-30); POTASSIUM 2.8 mmol/L (3.5-5.1); SALICYLATE 0.8 mg/dL (2.8-20.0)
[2019-12-31] MEDS ORDERED: POTASSIUM CHLORIDE 20 MEQ TAB.PRT.SR PO ONE ×2 (00:47→01:00)
--- NOTE | 2019-12-31 00:50 | NUR ---
PATIENT IS SLEEPING. EASILY AROUSABLE THROUGH TACTILE AND VERBAL STIMULI. CONNECTED TO MONITOR. BREATHING EVENLY AND UNLABORED ON ROOM AIR. SITTER AT BEDSIDE.
--- NOTE | 2019-12-31 03:19 | NUR ---
PATIENT IS SLEEPING. EASILY AROUSABLE THROUGH TOUCH AND VERBAL STIMULI. CONNECTED TO THE MONITOR. BREATHING EVENLY AND UNLABORED ON ROOM AIR. SITTER AT BEDSIDE. SIDE RAILS ARE UP FOR SAFETY OF THE PATIENT.
--- NOTE | 2019-12-31 04:40 | NUR ---
AMPOULE SEALER AT BEDSIDE FOR BLOOD DRAW
--- NOTE | 2019-12-31 08:16 | NUR ---
Assumed care report patient asleep non discomfort back to sleep no agitatio nno hallucination continue to monitor .
--- NOTE | 2019-12-31 09:04 | NUR ---
Patient asleep but arousable remain calm no agitation refused breakfast @ this time
--- NOTE | 2019-12-31 09:47 | NUR ---
Patient awake Breakfast served appreciated patient made awre plan of care .
--- NOTE | 2019-12-31 12:54 | NUR ---
Patient asllep but arousable non distress remain calm follows command
--- NOTE | 2019-12-31 15:30 | NUR ---
facesheet and clinicals [facility] to [facility].
--- NOTE | 2019-12-31 15:43 | NUR ---
pt sleeping easily arousable. cooperative. ask for food and milk. on monitor. stable vitals. sitter at bedside.
--- NOTE | 2019-12-31 16:11 | NUR ---
provided w/ meal tray.
--- NOTE | 2019-12-31 16:21 | NUR ---
Patient awake alert no\n distress no ghallucination no agitaion sitter @ bedside room check for manager drug safety @ bedside
--- NOTE | 2019-12-31 20:08 | NUR ---
SPOKE WITH KINJAL FROM [facility], NO BEDS AVAILABLE AT THIS TIME
--- NOTE | 2020-01-01 00:48 | NUR ---
SPOKE WITH [facility], ACCEPTING MD IS KERRI. PHONE NUMBER FOR REPORT IS EXT:[phone].
--- NOTE | 2020-01-01 00:59 | NUR ---
CALLED CALL THE CAR FOR TRANSPORTATION. WILL CALL BACK WITH ETA. RESERVATION #[id number]
--- NOTE | 2020-01-01 01:23 | NUR ---
[facility] ETA 2034
--- NOTE | 2020-01-01 01:45 | NUR ---
REPORT GIVEN TO TWILA AWAD FROM [facility] FOR PING
--- NOTE | 2020-01-01 02:50 | NUR ---
REPORT GIVEN TO [facility] FOR TRANSPORTATION PING
[2020-01-01 02:54] VITALS: BP 102/79
== END 2020-01-01 02:56 ==
LOC: ER 23:18
DX: R45.851 Suicidal ideations (principal); F15.10 Other stimulant abuse, uncomplicated; F25.9 Schizoaffective disorder, unspecified; G89.29 Other chronic pain; F17.200 Nicotine dependence, unspecified, uncomplicated; Z60.2 Problems related to living alone; Z79.899 Other long term (current) drug therapy; Z04.6 Encounter for general psychiatric examination, requested by authority
CPT/HCPCS: 36415 ×2; 80048; 80076; 80305; 80307; 80329; 81001; 84132; 85025; 99285; 99406; G0480; J3490; 81000-TC

== ENCOUNTER 2020-01-12 22:29 | Emergency (ER) | payer OTHER ==
[~2020-01-12] VITALS: Ht 154.9 cm; Wt 54.4 kg
--- NOTE | 2020-01-12 23:30 | NUR ---
PT AMBULATORY TO ER BED 15, +SI PLANS TO OVERDOSE, -HI, PT ADMITS TO "DOING TOO MUCH DOPE" PT AOX4 RR EVEN AND UNLABORED. RR EVEN AND UNLABORED. NO SOB NOTED. NO NVD AT THIS TIME. PT GOWNED, PERSONAL BELONGINGS PLACED IN SECURED LOCKER AND LABELED, SECUIRTY AT BEDSIDE FOR WANDING. SITTER WITHIN LINE OF SIGHT. PT PROVIDED WITH URINAL FOR UA SPECIMEN. PT WAITING FOR MD ESTRADA.
--- NOTE | 2020-01-12 23:45 | NUR ---
LAB AT BEDSIDE FOR BLOOD DRAW
--- NOTE | 2020-01-12 23:50 | NUR ---
URINE COLLECTED. SENT TO LAB
[2020-01-12 23:52] LABS: BASOPHILS # (AUTO) 0.2 /CMM (0.0-0.2); BASOPHILS % (AUTO) 2.2 % (0.0-2.0); EOSINOPHILS % (AUTO) 4.9 % (0.0-6.0); HEMATOCRIT 40 % (39-51); HEMOGLOBIN 13.1 g/dL (13.5-17.5); LYMPHOCYTES # (AUTO) 2.5 /CMM (0.8-4.8); LYMPHOCYTES % (AUTO) 32.6 % (20.0-44.0); MEAN CORPUSCULAR HGB CONC 33 g/dl (31.0-36.0); MEAN CORPUSCULAR VOLUME 84 fL (80-96); MONOCYTES % (AUTO) 12.4 % (2.0-12.0); NEUTROPHILS # (AUTO) 3.7 /CMM (1.8-8.9); NEUTROPHILS % (AUTO) 47.9 % (43.0-81.0); PLATELET COUNT (AUTO) 427 /CMM (150-450); RED BLOOD CELL COUNT(AUTO) 4.76 MIL/uL (4.5-6.0); WHITE BLOOD COUNT (AUTO) 7.7 K/uL (4.3-11.0)
[2020-01-12 23:56] LABS: APPEARANCE,URINE CLEAR (CLEAR); BILIRUBIN,URINE SMALL (NEGATIVE); BLOOD, URINE NEGATIVE Ery/uL (NEGATIVE); COLOR,URINE YELLOW (YELLOW); KETONES,URINE TRACE (NEGATIVE); LEUKOCYTE ESTERASE ,URINE NEGATIVE (NEGATIVE); NITRITE, URINE NEGATIVE (NEGATIVE); PROTEIN,URINE 30 mg/dl (NEGATIVE); UGLUCOSE NEGATIVE (NEGATIVE); UROBILINOGEN,URINE 0.2 EU/dL (0.2)
[2020-01-12 23:58] LABS: CALCIUM, SERUM 9.6 mg/dL (8.5-10.1); CARBON DIOXIDE 31 mmol/L (21-32); CHLORIDE 98 mmol/L (98-107); CREATININE 0.8 mg/dL (0.6-1.3); GLUCOSE 91 mg/dL (74-106); POTASSIUM 3.2 mmol/L (3.5-5.1); SODIUM SERUM 139 mmol/L (136-145); UREA NITROGEN, BLOOD 18 mg/dL (7-18)
[2020-01-13 00:06] LABS: ALANINE AMINOTRANSFERASE 22 U/L (12-78); ALBUMIN 4.4 g/dL (3.4-5.0); ALCOHOL, BLOOD < 3 mg/dL (0-0); ALKALINE PHOSPHATASE 110 U/L (46-116); ASPARTATE AMINOTRANSFERASE 31 U/L (15-37); BILIRUBIN,DIRECT 0.2 mg/dL (0.0-0.2); BILIRUBIN,TOTAL 0.7 mg/dL (0.2-1.0); TOTAL PROTEIN, SERUM 8.2 g/dL (6.4-8.2)
[2020-01-13 00:11] LABS: ACETAMINOPHEN 0 ug/ml (10-30); SALICYLATE < 0.2 mg/dL (2.8-20.0)
[2020-01-13 00:13] LABS: BACTERIA,URINE None seen /HPF (None Seen); MUCUS,URINE Few /LPF (None Seen); RBC,URINE 0-2 /HPF (0-2); SQUAMOUS EPITHELIAL CELL,UR Rare /HPF (None Seen); WBC,URINE 0-2 /HPF (0-3)
--- NOTE | 2020-01-13 00:57 | NUR ---
CLINICAL FAXED TO [facility] FOR VOLUNTARY PSYCH ADMISSION.
[2020-01-13] MEDS ORDERED: POTASSIUM CHLORIDE 20 MEQ TAB.PRT.SR PO ONE (01:29)
[2020-01-13] MEDS: POTASSIUM CHLORIDE 20 MEQ TAB.PRT.SR PO ONE (01:36)
--- NOTE | 2020-01-13 02:32 | NUR ---
PT ASLEEP, NO ACUTE DISTRESS NOTED, ERSP EVEN AND UNLABORED. CALL LIGHT WITHIN REACH. WILL CONTINUE TO MONITOR PT CLOSELY. 1:1 SITTER REMAINS AT BEDSIDE FOR PT SAFETY.
--- NOTE | 2020-01-13 02:37 | NUR ---
PT ACCEPTED AT [facility] PT WILL GO TO UNIT 1 ROOM #104-B ACCEPTING MD SANTIAGO PHONE NUMBER FOR REPORT
--- NOTE | 2020-01-13 02:53 | NUR ---
[facility] CALLED FOR TRANSPORT. WILL CALL BACK FOR ETA. RESERVATION #[id number]
--- NOTE | 2020-01-13 03:04 | NUR ---
[facility] ETA [phone]
--- NOTE | 2020-01-13 03:33 | NUR ---
REPORT CALLED TO [facility] TWILA GUERRA.
--- NOTE | 2020-01-13 05:54 | NUR ---
TRANSPORT AT BEDSIDE REPORT GIVEN TO EMT. ALL BELONGINGS RETURNED TO PT.
[2020-01-13 05:55] VITALS: BP 127/61
== END 2020-01-13 05:56 ==
LOC: ER 22:29
DX: R45.851 Suicidal ideations (principal); F15.10 Other stimulant abuse, uncomplicated; F17.200 Nicotine dependence, unspecified, uncomplicated; F25.9 Schizoaffective disorder, unspecified; G89.29 Other chronic pain; F41.9 Anxiety disorder, unspecified; F32.9 Major depressive disorder, single episode, unspecified; Z60.2 Problems related to living alone; Z79.899 Other long term (current) drug therapy
CPT/HCPCS: 36415; 80048; 80076; 80305; 80307; 80329; 81001; 85025; 99285; 99406; G0480; 81000-TC

== ENCOUNTER 2020-02-12 00:32 | Emergency (ER) | payer OTHER ==
[~2020-02-12] VITALS: Ht 154.9 cm; Wt 59.0 kg
--- NOTE | 2020-02-12 01:18 | NUR ---
caled pt in wr x 3. no one in wr at this time.
--- NOTE | 2020-02-12 01:24 | NUR ---
called pt in waiting room. no one in waiting room at this time.
--- NOTE | 2020-02-12 02:10 | NUR ---
BIBSELF C/O SUICIDAL IDEATION WITH PLAN TO OVERDOSE. PT DENIES SI. PT AOX4 RR EVEN AND UNLABORED. NO SOB NOTED. NO NVD AT THIS TIME. PT WANDED PER SECURITY, SITTER WITHIN LINE OF SIGHT. PERSONAL BELONGINGS PLACED IN LOCKER. PT PT EVALUATED BY DR. PALACIO.
[2020-02-12 02:37] LABS: APPEARANCE,URINE CLEAR (CLEAR); BILIRUBIN,URINE NEGATIVE (NEGATIVE); BLOOD, URINE NEGATIVE Ery/uL (NEGATIVE); COLOR,URINE YELLOW (YELLOW); KETONES,URINE NEGATIVE (NEGATIVE); LEUKOCYTE ESTERASE ,URINE NEGATIVE (NEGATIVE); NITRITE, URINE NEGATIVE (NEGATIVE); PH,URINE 6.5 (5.0-8.0); PROTEIN,URINE NEGATIVE (NEGATIVE); UGLUCOSE NEGATIVE (NEGATIVE); UROBILINOGEN,URINE 0.2 EU/dL (0.2)
[2020-02-12 03:01] LABS: CALCIUM, SERUM 9.4 mg/dL (8.5-10.1); CARBON DIOXIDE 31 mmol/L (21-32); CHLORIDE 96 mmol/L (98-107); CREATININE 0.8 mg/dL (0.6-1.3); GLUCOSE 105 mg/dL (74-106); POTASSIUM 3.8 mmol/L (3.5-5.1); SODIUM SERUM 134 mmol/L (136-145); UREA NITROGEN, BLOOD 13 mg/dL (7-18)
[2020-02-12 03:10] LABS: ALANINE AMINOTRANSFERASE 22 U/L (12-78); ALBUMIN 4.3 g/dL (3.4-5.0); ALKALINE PHOSPHATASE 114 U/L (46-116); ASPARTATE AMINOTRANSFERASE 23 U/L (15-37); BILIRUBIN,DIRECT 0.1 mg/dL (0.0-0.2); BILIRUBIN,TOTAL 0.4 mg/dL (0.2-1.0); TOTAL PROTEIN, SERUM 8.2 g/dL (6.4-8.2)
[2020-02-12 03:11] LABS: SALICYLATE 0.6 mg/dL (2.8-20.0)
[2020-02-12 03:12] LABS: ACETAMINOPHEN < 2 ug/ml (10-30); ALCOHOL, BLOOD < 3 mg/dL (0-0)
[2020-02-12 03:21] LABS: BASOPHILS # (AUTO) 0.3 /CMM (0.0-0.2); BASOPHILS % (AUTO) 2.7 % (0.0-2.0); EOSINOPHILS % (AUTO) 4.9 % (0.0-6.0); HEMATOCRIT 41 % (39-51); HEMOGLOBIN 13.1 g/dL (13.5-17.5); LYMPHOCYTES # (AUTO) 2.3 /CMM (0.8-4.8); LYMPHOCYTES % (AUTO) 20.5 % (20.0-44.0); MEAN CORPUSCULAR HGB CONC 32 g/dl (31.0-36.0); MEAN CORPUSCULAR VOLUME 84 fL (80-96); MONOCYTES # (AUTO) 0.8 /CMM (0.1-1.30); MONOCYTES % (AUTO) 6.7 % (2.0-12.0); NEUTROPHILS # (AUTO) 7.3 /CMM (1.8-8.9); NEUTROPHILS % (AUTO) 65.2 % (43.0-81.0); PLATELET COUNT (AUTO) 433 /CMM (150-450); RED BLOOD CELL COUNT(AUTO) 4.85 MIL/uL (4.5-6.0); WHITE BLOOD COUNT (AUTO) 11.2 K/uL (4.3-11.0)
--- NOTE | 2020-02-12 06:19 | NUR ---
PT RESTING AT THIS TIME. PT APPEARS COMFORTABLE. SITTE WITHIN LINE OF SIGHT.
--- NOTE | 2020-02-12 06:57 | NUR ---
SPOKE WITH ZURI FROM [facility], STILL NO BED AVAILABLE AT THIS TIME
--- NOTE | 2020-02-12 08:02 | NUR ---
PATIENT RESTING, NO DISTRESS NOTED. NEEDS ATTENDED.
--- NOTE | 2020-02-12 08:47 | NUR ---
ORDERED BREAKFAST FOOD TRAY.
--- NOTE | 2020-02-12 10:08 | NUR ---
BETHANY AT BEDSIDE FOR EVAL.
--- NOTE | 2020-02-12 10:45 | NUR ---
SPOKE TO ZURI FROM [facility]. PATIENT IS ACCEPTED TO [facility] UNDER DR. MANNING/DR. ESTRADA. PT IS GOING TO UNIT 1.
--- NOTE | 2020-02-12 10:56 | NUR ---
CALLED CALL THE CAR FOR TRANSPORT. NO ETA PROVIDED. REFERENCE NUMBER [id number].
--- NOTE | 2020-02-12 11:28 | NUR ---
NUMBER FOR REPORT [phone].
[2020-02-12 11:33] VITALS: BP 123/66
--- NOTE | 2020-02-12 11:33 | NUR ---
REPORT GIVEN TO TWILA JIMENEZ OF [facility] FOR PING.
--- NOTE | 2020-02-12 12:06 | NUR ---
REPORT GIVEN TO EMT FOR PT TRANSFER TO [facility].
--- NOTE | 2020-02-12 14:05 | NUR ---
This SW met with the patient at bedside. Patient is a 34-year-old male. Patient confirmed date of and social security number. Patient spoke with this SW but upon introduction patient stated, Im only telling you what is important, thats it and patient remained focused on television screen but did make eye contact when this SW spoke. Patient reports to be homeless. Per patient, he has been homeless for years. Per patient, he has been living in the [place] area and that is where he plans to return. Per patient, he currently reports suicidal plan to overdose on medications. Per patient, he has a history of using meth but denies alcohol use. Per patient, he currently receives $250 in [employer] and $125 in Food stamps. Patient stated That is it. I do not want to talk to you anymore. I want voluntary treatment at [facility].
== END 2020-02-12 12:07 ==
LOC: ER 00:35
DX: R45.851 Suicidal ideations (principal); F15.10 Other stimulant abuse, uncomplicated; Z82.49 Family history of ischemic heart disease and other diseases of the circulatory system; G89.29 Other chronic pain; F25.9 Schizoaffective disorder, unspecified; F19.10 Other psychoactive substance abuse, uncomplicated; Z20.828 Contact with and (suspected) exposure to other viral communicable diseases
CPT/HCPCS: 36415; 80048; 80076; 80299; 80307 ×2; 80320; 81001; 85025; 87426; 99285; C9803; 81000-TC; G0480

== ENCOUNTER 2020-03-24 22:52 | Emergency (ER) | payer OTHER ==
[~2020-03-24] VITALS: Ht 154.9 cm; Wt 59.0 kg
--- NOTE | 2020-03-24 22:55 | NUR ---
TO ER BED 14 AMBULATORY C/O SI WITH PLAN TO OVERDOSE ON AMPTHETAMINES. ADMITS TO USING METH TODAY. PT DENIES HI. PT AAOX4 NO ACUTE DISTRESS NOTED, RESP EVEN AND UNLABORED. PLACE PT ON HOSPITAL GOWN, ALL BELONGINGS REMOVED AND PLACED ON A LOCKED HOSPITAL LOCKER. 1:1 SITTER AT BEDSIDE FOR PT SAFETY.
--- NOTE | 2020-03-24 23:10 | NUR ---
URINE SAMPLE COLLECTED AND SENT TO LAB.
--- NOTE | 2020-03-24 23:13 | NUR ---
ER MD AT BEDSIDE TO EVAL PT WITH ORDERS RECEIVED. WILL CARRY OUT ORDERS.
[2020-03-24 23:14] LABS: BILIRUBIN,URINE Negative (NEGATIVE); BLOOD, URINE Negative Ery/uL (NEGATIVE); COLOR,URINE YELLOW (YELLOW); LEUKOCYTE ESTERASE ,URINE Negative (NEGATIVE); NITRITE, URINE Negative (NEGATIVE); PH,URINE 5.5 (5.0-8.0); PROTEIN,URINE Negative (NEGATIVE); UGLUCOSE Negative (NEGATIVE); UROBILINOGEN,URINE 0.2 EU/dL (0.2)
[2020-03-24 23:24] LABS: BASOPHILS # (AUTO) 0.1 /CMM (0.0-0.2); BASOPHILS % (AUTO) 1.3 % (0.0-2.0); EOSINOPHILS % (AUTO) 4.8 % (0.0-6.0); HEMATOCRIT 41 % (39-51); HEMOGLOBIN 13.4 g/dL (13.5-17.5); LYMPHOCYTES # (AUTO) 2.6 /CMM (0.8-4.8); LYMPHOCYTES % (AUTO) 25.9 % (20.0-44.0); MEAN CORPUSCULAR HGB CONC 32 g/dl (31.0-36.0); MEAN CORPUSCULAR VOLUME 83 fL (80-96); MONOCYTES % (AUTO) 10.6 % (2.0-12.0); NEUTROPHILS # (AUTO) 5.6 /CMM (1.8-8.9); NEUTROPHILS % (AUTO) 57.4 % (43.0-81.0); PLATELET COUNT (AUTO) 460 /CMM (150-450); WHITE BLOOD COUNT (AUTO) 9.9 K/uL (4.3-11.0)
[2020-03-24] MEDS ORDERED: LORAZEPAM 1 MG TABLET PO ONE (23:30)
[2020-03-24] MEDS ORDERED: OLANZAPINE 5 MG TABLET PO ONE (23:30)
[2020-03-24 23:31] LABS: BACTERIA,URINE Few /HPF (None Seen); RBC,URINE 0-2 /HPF (0-2); SQUAMOUS EPITHELIAL CELL,UR Few /HPF (None Seen); WBC,URINE 0-2 /HPF (0-3)
[2020-03-24 23:33] LABS: CALCIUM, SERUM 9.8 mg/dL (8.5-10.1); CARBON DIOXIDE 33 mmol/L (21-32); CHLORIDE 97 mmol/L (98-107); CREATININE 0.8 mg/dL (0.6-1.3); GLUCOSE 76 mg/dL (74-106); POTASSIUM 3.4 mmol/L (3.5-5.1); SODIUM SERUM 138 mmol/L (136-145); UREA NITROGEN, BLOOD 19 mg/dL (7-18)
--- NOTE | 2020-03-24 23:35 | NUR ---
CHIPID SWABBED, SENT TO LAB.
[2020-03-24 23:40] LABS: ACETAMINOPHEN 0 ug/ml (10-30); ALANINE AMINOTRANSFERASE 16 U/L (12-78); ALBUMIN 4.5 g/dL (3.4-5.0); ALCOHOL, BLOOD < 3 mg/dL (0-0); ALKALINE PHOSPHATASE 132 U/L (46-116); ASPARTATE AMINOTRANSFERASE 23 U/L (15-37); BILIRUBIN,DIRECT 0.1 mg/dL (0.0-0.2); BILIRUBIN,TOTAL 0.4 mg/dL (0.2-1.0); TOTAL PROTEIN, SERUM 8.6 g/dL (6.4-8.2)
--- NOTE | 2020-03-25 00:10 | NUR ---
CLINICAL FAXED TO [facility] FOR VOLUNTARY PSYCH ADMISSION.
--- NOTE | 2020-03-25 00:13 | NUR ---
LAB CALLED REGARDING NEGATIVE COVID RESULT.
--- NOTE | 2020-03-25 00:34 | NUR ---
PT ASLEEP, VSS. ON MONITOR AND PULSE OX.
--- NOTE | 2020-03-25 01:39 | NUR ---
PT ACCEPTED TO [facility] ACCEPTING MD: DR BENTON/DR. SANTIAGO NUMBER FOR REPORT: [phone] EXT [phone]
--- NOTE | 2020-03-25 01:48 | NUR ---
CALLED CALL THE CAR FOR TRANSPORTATION. RESERVATION [phone], WILL CALL BACK WITH JENNY
--- NOTE | 2020-03-25 01:52 | NUR ---
MULTIPLE ATTEMPTS TO GIVE REPORT AT [facility]. NO ANSWER. WILL FOLLOW UP
--- NOTE | 2020-03-25 02:56 | NUR ---
[facility] ETA [phone]
--- NOTE | 2020-03-25 03:00 | NUR ---
REPORT GIVEN TO TWILA CHATMAN FROM [facility] FOR PING Addendum: 03/25/20 at 0541 by DEBORAH BED ASSIGNMENT [id number]
--- NOTE | 2020-03-25 05:00 | NUR ---
[facility] DELAYED 30MINUTES
[2020-03-25 05:44] VITALS: BP 92/51
--- NOTE | 2020-03-25 05:44 | NUR ---
REPORT GIVEN TO [facility] FOR TRANSPORTATION PING
== END 2020-03-25 05:46 ==
LOC: ER 22:55
DX: R45.851 Suicidal ideations (principal); F15.10 Other stimulant abuse, uncomplicated; Z20.828 Contact with and (suspected) exposure to other viral communicable diseases; F19.10 Other psychoactive substance abuse, uncomplicated; F25.9 Schizoaffective disorder, unspecified; G89.29 Other chronic pain; Z88.8 Allergy status to other drugs, medicaments and biological substances; Z79.899 Other long term (current) drug therapy
CPT/HCPCS: 36415; 80048; 80076; 80299; 80307; 80320; 81001; 85025; 87426; 99285; C9803; G0480

== ENCOUNTER 2020-05-06 06:34 | Emergency (ER) | payer OTHER ==
[~2020-05-06] VITALS: Ht 157.5 cm; Wt 57.2 kg
[2020-05-06 07:52] VITALS: BP 134/81
[2020-05-06 08:39] LABS: BASOPHILS # (AUTO) 0.1 /CMM (0.0-0.2); BASOPHILS % (AUTO) 0.6 % (0.0-2.0); EOSINOPHILS % (AUTO) 2.5 % (0.0-6.0); HEMATOCRIT 42 % (39-51); HEMOGLOBIN 13.6 g/dL (13.5-17.5); LYMPHOCYTES # (AUTO) 1.6 /CMM (0.8-4.8); LYMPHOCYTES % (AUTO) 14.3 % (20.0-44.0); MEAN CORPUSCULAR HGB CONC 33 g/dl (31.0-36.0); MEAN CORPUSCULAR VOLUME 83 fL (80-96); MONOCYTES # (AUTO) 1.2 /CMM (0.1-1.30); MONOCYTES % (AUTO) 10.6 % (2.0-12.0); PLATELET COUNT (AUTO) 482 /CMM (150-450); RED BLOOD CELL COUNT(AUTO) 5.03 MIL/uL (4.5-6.0); WHITE BLOOD COUNT (AUTO) 11.1 K/uL (4.3-11.0)
[2020-05-06 08:45] LABS: CALCIUM, SERUM 9.4 mg/dL (8.5-10.1); CARBON DIOXIDE 32 mmol/L (21-32); CHLORIDE 96 mmol/L (98-107); CREATININE 0.8 mg/dL (0.6-1.3); GLUCOSE 86 mg/dL (74-106); POTASSIUM 3.3 mmol/L (3.5-5.1); SODIUM SERUM 138 mmol/L (136-145); UREA NITROGEN, BLOOD 18 mg/dL (7-18)
[2020-05-06 08:50] LABS: BILIRUBIN,URINE SMALL (NEGATIVE); COLOR,URINE DARK YELLOW (YELLOW); LEUKOCYTE ESTERASE ,URINE Negative (NEGATIVE); NITRITE, URINE Negative (NEGATIVE); PH,URINE 5.5 (5.0-8.0); PROTEIN,URINE 30 mg/dl (NEGATIVE); UGLUCOSE Negative (NEGATIVE); UROBILINOGEN,URINE 0.2 EU/dL (0.2)
[2020-05-06 08:58] LABS: ALANINE AMINOTRANSFERASE 23 U/L (12-78); ALBUMIN 4.4 g/dL (3.4-5.0); ALCOHOL, BLOOD < 3 mg/dL (0-0); ALKALINE PHOSPHATASE 161 U/L (46-116); ASPARTATE AMINOTRANSFERASE 28 U/L (15-37); BILIRUBIN,DIRECT 0.2 mg/dL (0.0-0.2); BILIRUBIN,TOTAL 0.9 mg/dL (0.2-1.0); TOTAL PROTEIN, SERUM 8.9 g/dL (6.4-8.2)
[2020-05-06 08:59] LABS: ACETAMINOPHEN < 2 ug/ml (10-30)
[2020-05-06 09:08] LABS: BACTERIA,URINE Few /HPF (None Seen); RBC,URINE 0-2 /HPF (0-2); SQUAMOUS EPITHELIAL CELL,UR Moderate /HPF (None Seen); WBC,URINE 0-2 /HPF (0-3)
--- NOTE | 2020-05-06 09:50 | NUR ---
GIANLUCA BAEW CALLED FOR SWS FOR POSSIBLE TX TO [place]
--- NOTE | 2020-05-06 10:10 | NUR ---
Per ED physician reports, patient is feeling suicidal and would like to seek treatment at a psychiatric hospital as he his currently feeling suicidal. MARCELO faxed clinicals to [facility] . Plan: MARCELO to conduct Events Director assessment on patient. SW to follow-up with referral made to [facility]. Patient pending COVID-19 results, SW to follow-up with ED staff. MARCELO remains available for all needs regarding this patient.
--- NOTE | 2020-05-06 10:36 | NUR ---
SW met with the patient. Patient is a 35 year-old male. Patient is alert and oriented x4. Patient reported to this SW that he presented to [facility] ED for medical clearance for voluntary psychiatric hospitalization. Patient reported that he has been feeling suicidal for approximately 3 days. Patient reported to this SW that his plan is to overdose on medications. Patient reports that he has a diagnosis of Schizo-effective disorder. Patient reports that he is not on medications at this time. Patient reports the last time that he took his medications were approximately 3 weeks ago. Patient reports that he does not have a current prescription and this is partially the reason he wants voluntary hospitalization. Patient currently reports that he lives with a roommate and patient confirmed these demographics with this SW. Patient denies homicidal ideation. Patient denies auditory and visual hallucinations. Patient reported to this SW the use of Methamphetamine and denied use of other drugs, alcohol, and cigarettes. Patient was cooperative throughout this assessment. Plan: SW to follow-up with ED staff regarding COVID-19 test. SW to consult with ED physician Dr. Banks regarding assessment findings. SW to remain available for all needs regarding this patient.
--- NOTE | 2020-05-06 10:43 | NUR ---
MARCELO notified ED electronic service technician Gener that the patient needs a COVID-19 rapid exam for possible transfer to [facility]. MARCELO spoke with Dr. Banks and is in agreement patient to be transferred for voluntary psychiatric admission. MARCELO remains available for all needs regarding this patient.
--- NOTE | 2020-05-06 12:03 | NUR ---
MARCELO spoke with Missael at [facility] . Per Missael, patient cannot be accepted at this time due to no bed availability. SW to refer patient to [facility] for assistance in placing the patient in a facility for voluntary psychiatric hospitalization. Plan: SW to follow-up with [facility] Qualitative Field Coordinator following referral.
--- NOTE | 2020-05-06 12:06 | NUR ---
MARCELO referred the patient to [facility] . MARCELO sent clinicals including MD note stating patient is seeking voluntary hospitalization. Plan: MARCELO to call and speak with a [facility] promotional representative at .
--- NOTE | 2020-05-06 12:17 | NUR ---
MARCELO followed-up with ED RN Giuliano regarding COVID test. Per Giuliano, order will be placed. Plan: MARCELO to follow-up on referral to [facility] and COVID test.
--- NOTE | 2020-05-06 13:07 | NUR ---
MARCELO called [facility] intake number . MARCELO unable to speak with merchandiser retail representative. MARCELO left call back number with contact information. MARCELO will follow-up again.
--- NOTE | 2020-05-06 14:10 | NUR ---
SW spoke with ED RN Giuliano, COVID-19 test will be administered at this time. SW to follow-up for results.
--- NOTE | 2020-05-06 14:44 | NUR ---
MARCELO followed-up with paving plant operatorKirill Grier. Per Marvel, test has not been administered. SW to follow-up with ED staff.
--- NOTE | 2020-05-06 15:41 | NUR ---
SW spoke with ED TWILA Nobles. ED TWILA Nobles informed this SW that the patient has eloped. SW to withdraw referral from [facility] regarding this patient.
--- NOTE | 2020-05-06 15:46 | NUR ---
MARCELO spoke with Suly at [facility] , this SW informed Suly that the patient eloped from [facility] facility.
--- NOTE | 2020-05-06 19:08 | NUR ---
PT ELOPED FROM FACILITY
== END 2020-05-06 19:09 | disposition left against medical advice (07) ==
LOC: ER 06:36
DX: R45.851 Suicidal ideations (principal); F19.10 Other psychoactive substance abuse, uncomplicated; F32.9 Major depressive disorder, single episode, unspecified; F25.9 Schizoaffective disorder, unspecified; F17.200 Nicotine dependence, unspecified, uncomplicated; Z88.6 Allergy status to analgesic agent; Z60.2 Problems related to living alone; Z79.899 Other long term (current) drug therapy
CPT/HCPCS: 36415; 80048-TC; 80076-TC; 81001; 85025-TC; G0480

== ENCOUNTER 2020-05-23 17:32 | Emergency (ER) | payer OTHER ==
[~2020-05-23] VITALS: Ht 160 cm; Wt 59.0 kg
[2020-05-23 19:19] VITALS: BP 122/76
[2020-05-23 19:48] LABS: BILIRUBIN,URINE Negative (NEGATIVE); COLOR,URINE YELLOW (YELLOW); LEUKOCYTE ESTERASE ,URINE Negative (NEGATIVE); NITRITE, URINE Negative (NEGATIVE); PH,URINE 5.5 (5.0-8.0); PROTEIN,URINE Negative (NEGATIVE); UGLUCOSE Negative (NEGATIVE); UROBILINOGEN,URINE 0.2 EU/dL (0.2)
[2020-05-23 20:32] LABS: BASOPHILS # (AUTO) 0.1 /CMM (0.0-0.2); BASOPHILS % (AUTO) 1.5 % (0.0-2.0); HEMATOCRIT 42 % (39-51); HEMOGLOBIN 13.7 g/dL (13.5-17.5); LYMPHOCYTES # (AUTO) 2.9 /CMM (0.8-4.8); LYMPHOCYTES % (AUTO) 34.5 % (20.0-44.0); MEAN CORPUSCULAR HGB CONC 33 g/dl (31.0-36.0); MEAN CORPUSCULAR VOLUME 83 fL (80-96); MONOCYTES % (AUTO) 11.4 % (2.0-12.0); NEUTROPHILS # (AUTO) 4.1 /CMM (1.8-8.9); NEUTROPHILS % (AUTO) 48.6 % (43.0-81.0); PLATELET COUNT (AUTO) 469 /CMM (150-450); RED BLOOD CELL COUNT(AUTO) 5.09 MIL/uL (4.5-6.0); WHITE BLOOD COUNT (AUTO) 8.4 K/uL (4.3-11.0)
[2020-05-23 20:49] LABS: CALCIUM, SERUM 10.1 mg/dL (8.5-10.1); CARBON DIOXIDE 31 mmol/L (21-32); CHLORIDE 95 mmol/L (98-107); GLUCOSE 70 mg/dL (74-106); POTASSIUM 3.3 mmol/L (3.5-5.1); SODIUM SERUM 136 mmol/L (136-145); UREA NITROGEN, BLOOD 24 mg/dL (7-18)
[2020-05-23 20:59] LABS: ACETAMINOPHEN < 0 ug/ml (10-30); ALANINE AMINOTRANSFERASE 21 U/L (12-78); ALBUMIN 4.5 g/dL (3.4-5.0); ALCOHOL, BLOOD < 3 mg/dL (0-0); ALKALINE PHOSPHATASE 152 U/L (46-116); ASPARTATE AMINOTRANSFERASE 27 U/L (15-37); BILIRUBIN,DIRECT 0.1 mg/dL (0.0-0.2); BILIRUBIN,TOTAL 0.6 mg/dL (0.2-1.0)
--- NOTE | 2020-05-23 22:41 | NUR ---
facesheet and clinical faxed to [facility] intake for voluntary psych admission.
--- NOTE | 2020-05-23 23:41 | NUR ---
PT DENIES SI AND HI. REQUESTED TO LEAVE E.Chalo VSS. AWARE. PT LEFT E.Yarelis.
== END 2020-05-23 23:42 | disposition home or self-care (01) ==
LOC: ER 18:27
DX: F32.9 Major depressive disorder, single episode, unspecified (principal); R45.851 Suicidal ideations; F25.9 Schizoaffective disorder, unspecified; F15.10 Other stimulant abuse, uncomplicated; Z79.899 Other long term (current) drug therapy; Z20.822 Contact with and (suspected) exposure to COVID-19; E87.6 Hypokalemia; F19.10 Other psychoactive substance abuse, uncomplicated; G89.29 Other chronic pain; Z91.14 Patient's other noncompliance with medication regimen
CPT/HCPCS: 36415; 80048; 80076; 80299; 80307; 80320; 81003; 85025; 87426; 99285; C9803; G0480

== ENCOUNTER 2020-06-09 23:05 | Emergency (ER) | payer OTHER ==
[~2020-06-09] VITALS: Ht 157.5 cm; Wt 59.0 kg
[2020-06-09 23:17] VITALS: BP 134/84
== END 2020-06-10 00:12 | disposition home or self-care (01) ==
LOC: ER 23:07
DX: S93.492A Sprain of other ligament of left ankle, initial encounter (principal); F25.9 Schizoaffective disorder, unspecified; F32.9 Major depressive disorder, single episode, unspecified; F19.10 Other psychoactive substance abuse, uncomplicated; F10.10 Alcohol abuse, uncomplicated; F17.200 Nicotine dependence, unspecified, uncomplicated; Y90.9 Presence of alcohol in blood, level not specified; Z88.6 Allergy status to analgesic agent; Z60.2 Problems related to living alone; Z79.899 Other long term (current) drug therapy; W01.0XXA Fall on same level from slipping, tripping and stumbling without subsequent striking against object, initial encounter; Y93.01 Activity, walking, marching and hiking; Y92.89 Other specified places as the place of occurrence of the external cause; Y99.8 Other external cause status
CPT/HCPCS: 73610-TC

== ENCOUNTER 2020-11-07 01:08 | Emergency (ER) | payer OTHER ==
[~2020-11-07] VITALS: Ht 157.5 cm; Wt 58.1 kg
--- NOTE | 2020-11-07 01:21 | NUR ---
CALLED FOR PT IN THE WAITING ROOM FOR ARCENIO, NO ANSWERS.
--- NOTE | 2020-11-07 01:32 | NUR ---
CALLED FOR TRIAGE, NO ANSWER.
--- NOTE | 2020-11-07 01:52 | NUR ---
CALLED FOR PATIENT IN THE WAITING ROOM, NO RESPONSE.
[2020-11-07 03:27] LABS: BASOPHILS # (AUTO) 0.1 K/uL (0.0-0.2); BASOPHILS % (AUTO) 1.5 % (0.0-2.0); EOSINOPHILS % (AUTO) 5.4 % (0.0-6.0); HEMATOCRIT 38 % (39-51); HEMOGLOBIN 12.5 g/dL (13.5-17.5); LYMPHOCYTES # (AUTO) 2.3 K/uL (0.8-4.8); LYMPHOCYTES % (AUTO) 30.8 % (20.0-44.0); MEAN CORPUSCULAR HGB CONC 33 g/dl (31.0-36.0); MEAN CORPUSCULAR VOLUME 82 fL (80-96); MONOCYTES # (AUTO) 0.8 K/uL (0.1-1.30); MONOCYTES % (AUTO) 10.1 % (2.0-12.0); NEUTROPHILS % (AUTO) 52.2 % (43.0-81.0); PLATELET COUNT (AUTO) 412 K/uL (150-450); WHITE BLOOD COUNT (AUTO) 7.6 K/uL (4.3-11.0)
[2020-11-07 03:31] LABS: CALCIUM, SERUM 9.2 mg/dL (8.5-10.1); CARBON DIOXIDE 28 mmol/L (21-32); CHLORIDE 102 mmol/L (98-107); GLUCOSE 85 mg/dL (74-106); POTASSIUM 3.1 mmol/L (3.5-5.1); SODIUM SERUM 139 mmol/L (136-145); UREA NITROGEN, BLOOD 14 mg/dL (7-18)
[2020-11-07 03:38] LABS: BILIRUBIN,URINE Negative (NEGATIVE); COLOR,URINE YELLOW (YELLOW); LEUKOCYTE ESTERASE ,URINE Negative (NEGATIVE); NITRITE, URINE Negative (NEGATIVE); PH,URINE 6.5 (5.0-8.0); PROTEIN,URINE Negative (NEGATIVE); UGLUCOSE Negative (NEGATIVE)
[2020-11-07 03:44] LABS: ALANINE AMINOTRANSFERASE 27 U/L (12-78); ALBUMIN 4.2 g/dL (3.4-5.0); ALKALINE PHOSPHATASE 110 U/L (46-116); ASPARTATE AMINOTRANSFERASE 27 U/L (15-37); BILIRUBIN,DIRECT 0.2 mg/dL (0.0-0.2); BILIRUBIN,TOTAL 0.5 mg/dL (0.2-1.0); TOTAL PROTEIN, SERUM 7.6 g/dL (6.4-8.2)
[2020-11-07 03:45] LABS: ACETAMINOPHEN 0 ug/ml (10-30); ALCOHOL, BLOOD < 3 mg/dL (0-0)
--- NOTE | 2020-11-07 06:22 | NUR ---
PLACED IN BED 14 ON MONITOR AND PULSE OX. BELONINGS PLACED IN LOCKER. PT AWARE OF PLAN OF CARE, AWAITING OTHER ORDERS.
--- NOTE | 2020-11-07 08:05 | NUR ---
BREAKFAST TRAY PROVIDED
--- NOTE | 2020-11-07 10:08 | NUR ---
PATIENT IS ACCEPTED AT [facility] UNDER DR. ORTIZ. GIVE REPORT AND SEND PATIENT AFTER 12PM TO SWEEPER OPERATOR HIGHWAYS. PHONE # [phone].
--- NOTE | 2020-11-07 10:10 | NUR ---
"SS Consult: SS Consult requested for SI, Homelessness, and drug use. The pt. is a 35 year old male who presents to the ED with C/O SI w/plan to run into traffic. The pt. appears unkempt, A&O X4 and makes poor eye contact. Pt.s mood dysphoric, pt. is irritable and defensive. The pt. states he has been experiencing SI since yesterday and has a plan to run into traffic. MARCELO offered pt. voluntary admission to a psych facility for treatment and pt. is agreeable. Pt. states he is experiencing homeless and sleeps on the street. Pt. states denies drug and ETOH use. However, pt. tested positive for Cannabinoids and Amphetamine. Pt. denies Hx. of mental health issues. Pt. denies HI and denies visual hallucinations. Plan: SW referred pt. to [facility] [[facility] [place] [address] FAX:[phone]] for inpatient psychiatric treatment. Patient signed homeless waiver & it was placed in the pt.s chart. SW provided pt. with the following homeless resources and pt. accepted them: Substance Abuse resources provided included: [facility] Substance Abuse Self-Helpline ([facility]) ; CRI -HELP 03653 [facility]. [place] 916t[address] ; [facility] 56582 [facility] [address] ; [facility] Rehabilitation Program 24037 [facility] [address] ; [facility] [address]. [facility] [address] ; [facility] 4940 [facility] [address] ; [facility] 909 [facility] [address] ; [facility] Substance Abuse Helpline([facility])-[facility] ; [facility] ; [facility] [place]; [facility] [place]; Cri-Help [place]; I-ADARP Inter Agency Drug Abuse Recovery Juno Perez; [place] [place]; [facility]; [facility]; [facility], [facility]. [place]; Alcoholics Anonymous -SFV; Go-Qieq-Dxgpibb ; Marijuana Anonymous -SFV; Narcotics Anonymous www.na.org; Year-round shelters: [place] [facility] [address], [place] [phone] ; [place] [facility] [address] [place] [address]; [place] [facility] Fatgbye5380 [facility] [address] Winter Shelters: [facility] Provider: Volunteers of Cecilia ID Address: [address]Medisys Health NetworkNoe [place], [address] # of Beds: 47 Population Served: [facility] 6 | [facility] Julissa Gillette [place] Provider: Home at Last Address: [address], [address] # of Beds: 66 Population Served: [facility] Aerovance [place] Provider: First to Serve Address: 31726 [facility], [address] # of Beds: 56 Population Served: [facility] Guido WilkinsonNoe [place] Provider: SSG/Ms. [facility]and[facility] House Address: 8908 [facility], [address] # of Beds: 49 Population Served: [facility] 8 | [facility] Provider: First to Serve Address: 3535 [facility], [address] # of Beds: 37 Population Served: Coed Hygiene: [place] [facility]: [address]. [place] ; [facility] [facility] [address] [facility] Hospital[facility] ; [facility] [address], [place] . Food Resources: [place] Food [facility] at [facility]- [address] Stacy; Meet Each Need with Dignity ([facility]) [address]99 Kaiser HaywardNoe Renner; [facility] Food Pantry 9283 Suisun CityCHI Health Mercy Corning; [facility] 5256 [facility]. Mental Health resources provided: [facility] [address] [place], [place] [id number] ; [facility] Mental Health [place], Inc. [address]308 [facility] [address] 2, [place] [address] ; [facility] [address] [place] [address] ; [facility] [address] [place], [place] [id number] Healthcare Clinics: [facility] 6551 [facility], [address] [place]. [place] ; [facility] 6801 [facility] [address] [place] [address]; [facility] Center 89026 [facility]. [place] [phone] Counseling--Outpatient [facility] 4419 [facility], [place] [address] (Specializes in in-depth psychotherapy for emotional distress: anxiety, depression, interpersonal conflicts, life transitions, childhood abuse) [facility] [address] [place] [address] (Assist with solving problem marital difficulties, separation & divorce, aging parents, & grief, chronic & terminal illness) [facility] [address] [place] [address] (Deal with loss & grief, anxiety, marital difficulties) Homebound/Mental Health Services [address], [address] [place], [place] [address] (Provide in-home mental services to people who are incapable of leaving their homes) Organization for Needs of the Elderly Senior Service/Resource Center [address] [place] [address] [facility] [address] [place] [address] PSYCHIATRIC OUTPATIENT SERVICES [facility] Partial Hospitalization and Intensive Outpatient Program (Managed Care and [place] Only)[address]33 Antonio Javier. [facility] [phone] [facility] Partial Hospitalization and Outpatient Ranglbe30117 Antonio Lam [address] [place], [place] [phone] [facility] Partial Hospitalization and Outpatient Zhsgpoi5056 Juno Prakash. [place], [place] [phone] JUNO MIKE [facility] Mental Health Center Wkd34914 [address]. [address] [place], [place] [phone] [facility] Juno Perez Partial Hospitalization and Outpatient Lbuqpdj00176 [facility] Juno PerezATKINSON, [phone] "
--- NOTE | 2020-11-07 11:12 | NUR ---
TRANSPORT SET UP FOR 1230 WITH RACHANA MALLORY
[2020-11-07 12:20] VITALS: BP 122/71
--- NOTE | 2020-11-07 12:25 | NUR ---
REPORT GIVEN TO EMS FOR PT TRANSFER TO [facility].
== END 2020-11-07 12:33 ==
LOC: ER 01:10
DX: R45.851 Suicidal ideations (principal); F25.9 Schizoaffective disorder, unspecified; Z20.822 Contact with and (suspected) exposure to COVID-19; Z79.899 Other long term (current) drug therapy; Z88.8 Allergy status to other drugs, medicaments and biological substances; G89.29 Other chronic pain; F19.10 Other psychoactive substance abuse, uncomplicated; F32.9 Major depressive disorder, single episode, unspecified
CPT/HCPCS: 36415; 80048; 80076; 80143; 80307; 80320; 81003; 85025; 87426; 99285; C9803; G0480

== ENCOUNTER 2020-11-28 14:40 | Emergency (ER) | payer OTHER ==
[~2020-11-28] VITALS: Ht 160 cm; Wt 56.7 kg
[2020-11-28 15:12] VITALS: BP 115/70
--- NOTE | 2020-11-28 15:13 | NUR ---
THE PATIENT BIBS FOR C/O DEPRESSED. SUICIDAL W/ PLAN TO OVERDOSE ON DRUGS. DENIES HI. IN ROOM AIR AND DENIES SOB. RESPIRATION REGULAR AND UNLABORED. WILL CONTINUE TO MONITOR THE PATIENT.
[2020-11-28 15:26] LABS: BILIRUBIN,URINE Negative (NEGATIVE); COLOR,URINE YELLOW (YELLOW); LEUKOCYTE ESTERASE ,URINE Negative (NEGATIVE); NITRITE, URINE Negative (NEGATIVE); PH,URINE 5.5 (5.0-8.0); PROTEIN,URINE Negative (NEGATIVE); UGLUCOSE Negative (NEGATIVE); UROBILINOGEN,URINE 0.2 EU/dL (0.2)
--- NOTE | 2020-11-28 15:38 | NUR ---
EMERGENCY WORKER AT BEDSIDE FOR EVAL.
[2020-11-28 15:45] LABS: BASOPHILS % (AUTO) 0.2 % (0.0-2.0); EOSINOPHILS % (AUTO) 4.2 % (0.0-6.0); HEMATOCRIT 40 % (39-51); HEMOGLOBIN 13.1 g/dL (13.5-17.5); LYMPHOCYTES # (AUTO) 2.6 K/uL (0.8-4.8); LYMPHOCYTES % (AUTO) 33.8 % (20.0-44.0); MEAN CORPUSCULAR HGB CONC 33 g/dl (31.0-36.0); MEAN CORPUSCULAR VOLUME 82 fL (80-96); MONOCYTES # (AUTO) 0.8 K/uL (0.1-1.30); MONOCYTES % (AUTO) 10.9 % (2.0-12.0); NEUTROPHILS # (AUTO) 3.8 K/uL (1.8-8.9); NEUTROPHILS % (AUTO) 50.9 % (43.0-81.0); PLATELET COUNT (AUTO) 435 K/uL (150-450); RED BLOOD CELL COUNT(AUTO) 4.85 MIL/uL (4.5-6.0); WHITE BLOOD COUNT (AUTO) 7.6 K/uL (4.3-11.0)
--- NOTE | 2020-11-28 15:51 | NUR ---
DR CUEVAS AT BEDSIDE FOR EVAL.
[2020-11-28 15:54] LABS: CALCIUM, SERUM 9.6 mg/dL (8.5-10.1); CREATININE 0.8 mg/dL (0.6-1.3); POTASSIUM 4.3 mmol/L (3.5-5.1)
[2020-11-28 16:02] LABS: ALBUMIN 4.3 g/dL (3.4-5.0); BILIRUBIN,DIRECT 0.1 mg/dL (0.0-0.2); BILIRUBIN,TOTAL 0.3 mg/dL (0.2-1.0); TOTAL PROTEIN, SERUM 8.1 g/dL (6.4-8.2)
--- NOTE | 2020-11-28 16:53 | NUR ---
Trommel Tender consultation: Trommel Tender consultation requested for SI. Patient is a 35 year old male. This CAMP COORDINATOR met with the patient in the ED. Patient expressed having thoughts of SI, but with no definite plan. Patient requested voluntary placement at [facility], for SI and medication management, as he states he has not been taking his medications. Patient is homeless. Patient denied use of drugs, however per toxicology report, patient tested positive for amphetamines. Patient's speech was at times incoherent, and patient observed to be restless. This CAMP COORDINATOR to refer patient to [facility] for voluntary inpatient psychiatric placement. Dr. Raymond and TWILA Hutchison informed of above.
--- NOTE | 2020-11-28 16:55 | NUR ---
Night Warehouse Manager note: This CATERING CONVENTION SERVICES MANAGER faxed patient's clinicals to Missael at [facility], fax # [phone].
--- NOTE | 2020-11-28 17:42 | NUR ---
PT PROVIDED W. MEAL TRAY.
--- NOTE | 2020-11-28 18:12 | NUR ---
[facility] ETA 1930 TO DELORES DONALD.
--- NOTE | 2020-11-28 19:25 | NUR ---
REPORT GIVEN TO IDALIA AT [facility]. [facility] AT BED SIDE TO COURT SUPERVISOR THE PT. REPORT GIVEN
[2020-11-28 20:40] LABS: ACETAMINOPHEN < 0 ug/ml (10-30); ALCOHOL, BLOOD < 3 mg/dL (0-0)
== END 2020-11-28 19:39 ==
LOC: ER 14:41
DX: R45.851 Suicidal ideations (principal); F25.9 Schizoaffective disorder, unspecified; F19.10 Other psychoactive substance abuse, uncomplicated; Z88.6 Allergy status to analgesic agent; Z79.899 Other long term (current) drug therapy; Z20.822 Contact with and (suspected) exposure to COVID-19
CPT/HCPCS: 36415; 80048; 80076; 80143; 80307; 80320; 81003; 85025; 87426; 99285; C9803; G0480

== ENCOUNTER 2020-12-05 05:10 | Emergency (ER) | payer OTHER ==
[~2020-12-05] VITALS: Ht 160 cm; Wt 56.7 kg
--- NOTE | 2020-12-05 05:16 | NUR ---
TO ER BED 15 REQUESTING MEDICAL CLEARANCE FOR VOLUNTARY PSYCH ADMISSION. PT C/O SI WITH PLAN TO OVERDOSE ON DRUGS. DENIES HI. PT AAOX4 NO ACUTE DISTRESS NOTED, RESP EVEN AND UNLABORED. PT CALM AND COOPERATIVE AT THIS TIME. PT GOWNED, ALL BELONGINGS REMOVED, AND PLACED IN A LOCKED HOSPITAL LOCKER. 1:1 SITTER AT [facility] FOR PT SAFETY.
--- NOTE | 2020-12-05 05:57 | NUR ---
URINE COLLECTED, SENT TO LAB.
[2020-12-05 05:59] LABS: BILIRUBIN,URINE SMALL (NEGATIVE); COLOR,URINE YELLOW (YELLOW); LEUKOCYTE ESTERASE ,URINE Trace (NEGATIVE); NITRITE, URINE Negative (NEGATIVE); PROTEIN,URINE Negative (NEGATIVE); UGLUCOSE Negative (NEGATIVE); UROBILINOGEN,URINE 0.2 EU/dL (0.2)
[2020-12-05 06:00] LABS: BASOPHILS # (AUTO) 0.4 K/uL (0.0-0.2); BASOPHILS % (AUTO) 3.6 % (0.0-2.0); EOSINOPHILS % (AUTO) 4.5 % (0.0-6.0); HEMATOCRIT 41 % (39-51); HEMOGLOBIN 13.3 g/dL (13.5-17.5); LYMPHOCYTES # (AUTO) 1.7 K/uL (0.8-4.8); LYMPHOCYTES % (AUTO) 16.5 % (20.0-44.0); MEAN CORPUSCULAR HGB CONC 33 g/dl (31.0-36.0); MEAN CORPUSCULAR VOLUME 83 fL (80-96); MONOCYTES # (AUTO) 0.6 K/uL (0.1-1.30); MONOCYTES % (AUTO) 6.4 % (2.0-12.0); PLATELET COUNT (AUTO) 500 K/uL (150-450); RED BLOOD CELL COUNT(AUTO) 4.89 MIL/uL (4.5-6.0); WHITE BLOOD COUNT (AUTO) 10.1 K/uL (4.3-11.0)
[2020-12-05 06:09] LABS: CALCIUM, SERUM 9.4 mg/dL (8.5-10.1); CARBON DIOXIDE 25 mmol/L (21-32); CHLORIDE 102 mmol/L (98-107); CREATININE 0.7 mg/dL (0.6-1.3); GLUCOSE 81 mg/dL (74-106); POTASSIUM 4.2 mmol/L (3.5-5.1); SODIUM SERUM 140 mmol/L (136-145); UREA NITROGEN, BLOOD 20 mg/dL (7-18)
--- NOTE | 2020-12-05 06:12 | NUR ---
CHIPID SWABBED, SENT TO LAB.
[2020-12-05 06:25] LABS: ALANINE AMINOTRANSFERASE 21 U/L (12-78); ALBUMIN 4.5 g/dL (3.4-5.0); ALCOHOL, BLOOD < 3 mg/dL (0-0); ALKALINE PHOSPHATASE 141 U/L (46-116); ASPARTATE AMINOTRANSFERASE 18 U/L (15-37); BILIRUBIN,DIRECT 0.1 mg/dL (0.0-0.2); BILIRUBIN,TOTAL 0.4 mg/dL (0.2-1.0); TOTAL PROTEIN, SERUM 8.3 g/dL (6.4-8.2)
[2020-12-05 06:26] LABS: ACETAMINOPHEN 0 ug/ml (10-30)
[2020-12-05 07:39] LABS: RBC,URINE NONE SEEN /HPF (0-2)
[2020-12-05 07:40] LABS: BACTERIA,URINE Rare /HPF (None Seen); SQUAMOUS EPITHELIAL CELL,UR Rare /HPF (None Seen)
--- NOTE | 2020-12-05 07:42 | NUR ---
THE PATIENT IS ALERT AND ORIENTED X4. DENIES PAIN. IN ROOM AIR AND DENIES SOB. RESPIRATION REGULAR AND UNLABORED. WILL CONTINUE TO MONITOR THE PATIENT.
--- NOTE | 2020-12-05 08:02 | NUR ---
THE PATIENT IS HAVING BREAKFAST
[2020-12-05 11:23] LABS: EOSINOPHILS % (MANUAL) 7 % (0-4); LYMPHOCYTES % (MANUAL) 17 % (16-48); MONOCYTES % (MANUAL) 5 % (0-11.0); NEUTROPHILS % (MANUAL) 71 (42-76)
--- NOTE | 2020-12-05 12:30 | NUR ---
MARCELO Faxed clinicals to [facility] [[address] [place] [address] FAX:[phone]] for inpatient psychiatric treatment.
--- NOTE | 2020-12-05 12:30 | NUR ---
SS Consult: SS Consult requested for SI abuse & Homelessness. The pt. is a 35-year old male who presents to the ED with C/O SI "with no plan". The pt. appears unkempt is A&O X4 and makes good eye contact. Pt.'s speech is WNL. Pt.'s mood is depressed. Pt. states he has been having SI for the past week. MARCELO explored pt.'s living situation. Pt. states he has been homeless "on and off for a year". MARCELO explored pt.'s mental health Hx. Pt. stated he has been diagnosed with Major Depression and has been prescribed Ativan, Tramadol, Restoril, and Effexor. Per pt. he has not been compliant with meds recently. MARCELO explored pt.'s drug & ETOH use. Patient stated states he only uses Cannabis. However, pt. tested positive for Methamphetamine. SW providedpt. with drug rehab resources and pt. accepted them Pt. states he is ambulatory. MARCELO explored pt.'s support system. Pt. states his mother Holly [phone] is his support system.Pt. states he receives Food stamps. Plan: MARCELO referred pt. to [facility] [[address] [place] [address] FAX:[phone]] for inpatient psychiatric treatment. Pt. signed homeless waiver and it was placed in the chart. MARCELO provided pt. with homeless resources and he accepted them : Year-round shelters: [place] [address] [place], [place] [id number] ; [place] [facility] [place] [address] [place] [address]; [facility] [facility] [id number] [facility] [address] Winter Shelters: Higinio Abraham Provider: Winston of [place] Address: [address], [address] # of Beds: 47 Population Served: [facility] 6 | [facility] Julissa Gillette [place] Provider: Home at Last Address: [address] [facility], [address] # of Beds: 66 Population Served: Litzy Mehrdad Cooter Provider: First to Serve Address: [address] [facility], [address] # of Beds: 56 Population Served: Litzy Guido Abraham Provider: SSPeggy/Ms. Anand's House Address: 8908 [facility], [address] # of Beds: 49 Population Served: [facility] SPA 8 | [facility] Provider: First to Serve Address: 8435 [facility], [address] # of Beds: 37 Population Served: [facility] Hygiene: [facility] Care[facility]: [address] Abimael AveFreeman Heart [facility] ; [place] [facility] [address] [facility] ; [facility] 9302 [facility] [place] . Food Resources: [place] Food Pant[facility] at [facility]- [address] [facility] [place], [place]; Meet Each Need with Dignity ([facility]) [address]14 [facility]; [facility] Food Pantry 4328 [facility]; [facility] 8566 [facility]. Mental Health resources provided: [facility] [address] [place], [place] [phone] ; [facility] Mental Health Center, Inc. 74160 [facility] UN[address] 2, [place], [place] [phone] ; Iveth Lazcano [facility] Mental Health Urgent Care Center [address] [place] [address] ; [facility] [address] [place], [place] [phone] Healthcare Clinics: [facility] 6551 [facility], [address] [place]. [place] ; [facility] Clinic [address] [facility] [address] [place] [address]; [facility] 16166 [facility] [phone] Counseling--Outpatient [facility] [address] [place], [place] [address] (Specializes in in-depth psychotherapy for emotional distress: anxiety, depression, interpersonal conflicts, life transitions, childhood abuse) [facility] [address] [place], [place] [phone] (Assist with solving problem marital difficulties, separation & divorce, aging parents, & grief, chronic & terminal illness) [facility] [address] [place] [address] (Deal with loss & grief, anxiety, marital difficulties) Homebound/Mental Health Services 12748 [facility] [address] [place] [address] (Provide in-home mental services to people who are incapable of leaving their homes) Organization for Needs of the Elderly Senior Service/Resource Center [address] [place] [address] [facility] [address]14 [place] [address] PSYCHIATRIC OUTPATIENT SERVICES [facility] Partial Hospitalization and Intensive Outpatient Program (Managed Care and [place] Only)68133 [facility] [phone] [facility] Partial Hospitalization and Outpatient Rgiagnh71966 [facility] [address] [place], [place] [phone] [facility] [id number] [facility] [address] [place], [place] [phone] [facility] Partial Hospitalization and Outpatient Uuasdgu72016 Wallace Moncada [place], [phone] Substance Abuse resources provided included: [facility] Substance Abuse Self-Helpline (SASH) ; CRI -HELP 81766 [facility] 916t01 ; [facility] 06571 [facility] [address] ; [facility] Rehabilitation Program [address]98 [facility] [place] [address] ; [facility] [address] [facility] [id number] ; [facility] 4940 Juno Perez [facility] [id number] ; Rasheeda [facility] 909 E[facility] Du[facility] Hospital[facility]. [facility] [phone] ; [facility] Substance Abuse Helpline(SAS)[facility] ; [facility] ; [facility]; Rasheeda [facility]; Cri-Help [place]; I-ADARP Inter Agency Drug Abuse Recovery Juno [facility]; [facility] [place]; [facility] [place]; [facility]; [facility]'s [place], Inc. [place]; Alcoholics Anonymous -SFV; Km-Tsbw-Vaodooj ; Marijuana Anonymous -SFV; Narcotics Anonymous www.na.org;
--- NOTE | 2020-12-05 17:26 | NUR ---
ACCEPTED TO [facility] FOR REPORT [phone] EXT [phone]
--- NOTE | 2020-12-05 18:51 | NUR ---
TRANSPORT [facility] CALLED ETA OF 2009 PER BARBARA
--- NOTE | 2020-12-05 18:55 | NUR ---
MUNA PT NOW ACCEPTED TO UNDER DR. HILTON CALL [phone] UNIT TWO
[2020-12-05 19:28] VITALS: BP 128/64
--- NOTE | 2020-12-05 19:52 | NUR ---
REPORT GIVEN TO AMBERLY MATTSON FOR PING AND EMT. PT WILL BE TRANSFERED.
== END 2020-12-05 20:05 ==
LOC: ER 05:18
DX: R45.851 Suicidal ideations (principal); F25.9 Schizoaffective disorder, unspecified; F19.10 Other psychoactive substance abuse, uncomplicated; Z88.8 Allergy status to other drugs, medicaments and biological substances; Z79.899 Other long term (current) drug therapy; Z20.822 Contact with and (suspected) exposure to COVID-19
CPT/HCPCS: 36415; 80048; 80076; 80143; 80307; 80320; 81001; 85007; 85025; 87086; 87426; 99285; C9803; G0480

== ENCOUNTER 2020-12-14 13:07 | Emergency (ER) | payer OTHER ==
[~2020-12-14] VITALS: Ht 160 cm; Wt 62.1 kg
--- NOTE | 2020-12-14 13:08 | NUR ---
CALLED TO TRIAGE,NO ANSWER
--- NOTE | 2020-12-14 13:10 | NUR ---
called to triage, no answer
[2020-12-14 14:31] LABS: BASOPHILS # (AUTO) 0.1 K/uL (0.0-0.2); BASOPHILS % (AUTO) 0.6 % (0.0-2.0); EOSINOPHILS % (AUTO) 5.2 % (0.0-6.0); HEMATOCRIT 41 % (39-51); HEMOGLOBIN 13.6 g/dL (13.5-17.5); LYMPHOCYTES # (AUTO) 2.7 K/uL (0.8-4.8); LYMPHOCYTES % (AUTO) 26.7 % (20.0-44.0); MEAN CORPUSCULAR HGB CONC 33 g/dl (31.0-36.0); MEAN CORPUSCULAR VOLUME 82 fL (80-96); MONOCYTES # (AUTO) 0.9 K/uL (0.1-1.30); MONOCYTES % (AUTO) 8.5 % (2.0-12.0); NEUTROPHILS # (AUTO) 5.9 K/uL (1.8-8.9); PLATELET COUNT (AUTO) 423 K/uL (150-450); RED BLOOD CELL COUNT(AUTO) 4.96 MIL/uL (4.5-6.0)
[2020-12-14 14:39] LABS: CALCIUM, SERUM 9.7 mg/dL (8.5-10.1); CARBON DIOXIDE 35 mmol/L (21-32); CHLORIDE 101 mmol/L (98-107); CREATININE 0.8 mg/dL (0.6-1.3); GLUCOSE 86 mg/dL (74-106); POTASSIUM 3.7 mmol/L (3.5-5.1); SODIUM SERUM 140 mmol/L (136-145); UREA NITROGEN, BLOOD 17 mg/dL (7-18)
[2020-12-14 14:45] LABS: ALANINE AMINOTRANSFERASE 21 U/L (12-78); ALBUMIN 4.5 g/dL (3.4-5.0); ALCOHOL, BLOOD < 3 mg/dL (0-0); ALKALINE PHOSPHATASE 149 U/L (46-116); ASPARTATE AMINOTRANSFERASE 21 U/L (15-37); BILIRUBIN,DIRECT 0.1 mg/dL (0.0-0.2); BILIRUBIN,TOTAL 0.5 mg/dL (0.2-1.0); TOTAL PROTEIN, SERUM 8.6 g/dL (6.4-8.2)
[2020-12-14 14:46] LABS: BILIRUBIN,URINE Negative (NEGATIVE); COLOR,URINE YELLOW (YELLOW); LEUKOCYTE ESTERASE ,URINE Negative (NEGATIVE); NITRITE, URINE Negative (NEGATIVE); PH,URINE 5.5 (5.0-8.0); PROTEIN,URINE 30 mg/dl (NEGATIVE); UGLUCOSE Negative (NEGATIVE); UROBILINOGEN,URINE 0.2 EU/dL (0.2)
[2020-12-14 14:47] LABS: ACETAMINOPHEN < 2 ug/ml (10-30)
[2020-12-14 14:47] LABS: BACTERIA,URINE Rare /HPF (None Seen); RBC,URINE NONE SEEN /HPF (0-2); SQUAMOUS EPITHELIAL CELL,UR Few /HPF (None Seen); WBC,URINE NONE SEEN /HPF (0-3)
--- NOTE | 2020-12-14 19:28 | NUR ---
CLINICAL AND FACESHEET [facility]ED [facility] FOR [facility]OLUNT[facility] PSYCH ADMISSION.
--- NOTE | 2020-12-14 23:29 | NUR ---
CALLED [facility] ETA [phone]
--- NOTE | 2020-12-14 23:29 | NUR ---
PT ACCEPTED AT [facility]. ACCEPTING MD ALBERT/NATALIE PHONE NUMBER FOR REPORT EXT [phone]
[2020-12-15 00:37] VITALS: BP 132/70
--- NOTE | 2020-12-15 00:44 | NUR ---
REPORT GIVEN TO COMPA MATTSON FOR [facility] ROOM NUMBER [id number]
--- NOTE | 2020-12-15 01:26 | NUR ---
TRANSPORT AT BEDSIDE REPORT GIVEN TO EMT.
== END 2020-12-15 01:27 ==
LOC: ER 13:11
DX: R45.851 Suicidal ideations (principal); F25.1 Schizoaffective disorder, depressive type; F19.10 Other psychoactive substance abuse, uncomplicated; F15.10 Other stimulant abuse, uncomplicated; Z79.899 Other long term (current) drug therapy; R03.0 Elevated blood-pressure reading, without diagnosis of hypertension; Z20.822 Contact with and (suspected) exposure to COVID-19
CPT/HCPCS: 36415; 80048; 80076; 80143; 80307; 80320; 81001; 85025; 87426; 99285; C9803; G0480

== ENCOUNTER 2020-12-20 10:58 | Emergency (ER) | payer OTHER ==
[~2020-12-20] VITALS: Ht 152.4 cm; Wt 52.2 kg
--- NOTE | 2020-12-20 11:48 | NUR ---
covid swab done and sent to the lab
[2020-12-20 11:59] LABS: BASOPHILS # (AUTO) 0.1 K/uL (0.0-0.2); BASOPHILS % (AUTO) 1.4 % (0.0-2.0); EOSINOPHILS % (AUTO) 1.9 % (0.0-6.0); HEMATOCRIT 39 % (39-51); HEMOGLOBIN 12.9 g/dL (13.5-17.5); LYMPHOCYTES # (AUTO) 2.1 K/uL (0.8-4.8); LYMPHOCYTES % (AUTO) 23.2 % (20.0-44.0); MEAN CORPUSCULAR HGB CONC 33 g/dl (31.0-36.0); MEAN CORPUSCULAR VOLUME 83 fL (80-96); MONOCYTES # (AUTO) 0.7 K/uL (0.1-1.30); NEUTROPHILS % (AUTO) 65.5 % (43.0-81.0); PLATELET COUNT (AUTO) 457 K/uL (150-450); RED BLOOD CELL COUNT(AUTO) 4.66 MIL/uL (4.5-6.0); WHITE BLOOD COUNT (AUTO) 9.1 K/uL (4.3-11.0)
[2020-12-20 12:05] LABS: CALCIUM, SERUM 9.5 mg/dL (8.5-10.1); CARBON DIOXIDE 33 mmol/L (21-32); CHLORIDE 103 mmol/L (98-107); CREATININE 0.8 mg/dL (0.6-1.3); GLUCOSE 110 mg/dL (74-106); POTASSIUM 3.7 mmol/L (3.5-5.1); SODIUM SERUM 141 mmol/L (136-145); UREA NITROGEN, BLOOD 22 mg/dL (7-18)
[2020-12-20 12:09] LABS: BILIRUBIN,URINE Negative (NEGATIVE); COLOR,URINE YELLOW (YELLOW); LEUKOCYTE ESTERASE ,URINE Negative (NEGATIVE); NITRITE, URINE Negative (NEGATIVE); PROTEIN,URINE 30 mg/dl (NEGATIVE); UGLUCOSE Negative (NEGATIVE); UROBILINOGEN,URINE 0.2 EU/dL (0.2)
[2020-12-20 12:09] LABS: ALANINE AMINOTRANSFERASE 17 U/L (12-78); ALBUMIN 4.6 g/dL (3.4-5.0); ALKALINE PHOSPHATASE 134 U/L (46-116); ASPARTATE AMINOTRANSFERASE 14 U/L (15-37); BILIRUBIN,DIRECT 0.1 mg/dL (0.0-0.2); BILIRUBIN,TOTAL 0.3 mg/dL (0.2-1.0); TOTAL PROTEIN, SERUM 8.5 g/dL (6.4-8.2)
[2020-12-20 12:14] LABS: ACETAMINOPHEN 0 ug/ml (10-30); ALCOHOL, BLOOD < 3 mg/dL (0-0)
[2020-12-20 12:30] LABS: BACTERIA,URINE Few /HPF (None Seen); RBC,URINE 0-2 /HPF (0-2); SQUAMOUS EPITHELIAL CELL,UR Few /HPF (None Seen); WBC,URINE 0-2 /HPF (0-3)
--- NOTE | 2020-12-20 12:55 | NUR ---
FAXED CLINICALS TO [facility]
--- NOTE | 2020-12-20 17:26 | NUR ---
CALLED [facility] [phone] CHRISSY PT ACCEPTED [facility] UNIT [address] UND[address] MANNING CALL [phone] FOR REPORT.
--- NOTE | 2020-12-20 17:29 | NUR ---
TRANSPORT [facility] CALLED ETA 90 MINS PER SHAWNEE.
--- NOTE | 2020-12-20 18:21 | NUR ---
Report given to nurse Radhika from [facility]
--- NOTE | 2020-12-20 18:53 | NUR ---
Report given to EMT for transport to jessie gutierres
[2020-12-20 18:54] VITALS: BP 127/87
== END 2020-12-20 18:54 ==
LOC: ER 11:10
DX: R45.851 Suicidal ideations (principal); F15.10 Other stimulant abuse, uncomplicated; Z20.822 Contact with and (suspected) exposure to COVID-19; G89.29 Other chronic pain; F25.9 Schizoaffective disorder, unspecified; F19.10 Other psychoactive substance abuse, uncomplicated
CPT/HCPCS: 36415; 80048; 80076; 80143; 80307; 80320; 81001; 85025; 87426; 99285; C9803; G0480

== ENCOUNTER 2020-12-29 04:04 | Emergency (ER) | payer OTHER ==
--- NOTE | 2020-12-29 07:38 | NUR ---
called to triage,no answer
--- NOTE | 2020-12-29 08:08 | NUR ---
called to triage,no answer
== END 2020-12-29 08:09 | disposition left against medical advice (07) ==
LOC: ER 04:04
DX: Z53.21 Procedure and treatment not carried out due to patient leaving prior to being seen by health care provider (principal)

== ENCOUNTER 2020-12-31 10:48 | Emergency (ER) | payer OTHER ==
[~2020-12-31] VITALS: Ht 152.4 cm; Wt 52.2 kg
--- NOTE | 2020-12-31 11:11 | NUR ---
URINE COLLECTED AND SENT TO THE LAB
--- NOTE | 2020-12-31 11:12 | NUR ---
The patient bibs for having SI with a plan of "I want to jump off the plane". The patient denies HI. In room air and denies SOB. Respiration regular and unlabored. Denies pain. Safety measures taken. Will continue to monitor the patient.
--- NOTE | 2020-12-31 11:31 | NUR ---
rapid covid swab sent to lab
[2020-12-31 11:45] LABS: BASOPHILS # (AUTO) 0.1 K/uL (0.0-0.2); BASOPHILS % (AUTO) 1.3 % (0.0-2.0); EOSINOPHILS % (AUTO) 6.2 % (0.0-6.0); HEMATOCRIT 41 % (39-51); HEMOGLOBIN 13.4 g/dL (13.5-17.5); LYMPHOCYTES # (AUTO) 2.1 K/uL (0.8-4.8); LYMPHOCYTES % (AUTO) 24.2 % (20.0-44.0); MEAN CORPUSCULAR HGB CONC 33 g/dl (31.0-36.0); MEAN CORPUSCULAR VOLUME 84 fL (80-96); MONOCYTES # (AUTO) 0.6 K/uL (0.1-1.30); MONOCYTES % (AUTO) 6.5 % (2.0-12.0); NEUTROPHILS # (AUTO) 5.3 K/uL (1.8-8.9); NEUTROPHILS % (AUTO) 61.8 % (43.0-81.0); PLATELET COUNT (AUTO) 413 K/uL (150-450); RED BLOOD CELL COUNT(AUTO) 4.88 MIL/uL (4.5-6.0); WHITE BLOOD COUNT (AUTO) 8.6 K/uL (4.3-11.0)
[2020-12-31 11:54] LABS: CALCIUM, SERUM 9.5 mg/dL (8.5-10.1); CARBON DIOXIDE 27 mmol/L (21-32); CHLORIDE 103 mmol/L (98-107); CREATININE 0.7 mg/dL (0.6-1.3); GLUCOSE 92 mg/dL (74-106); POTASSIUM 4.2 mmol/L (3.5-5.1); SODIUM SERUM 138 mmol/L (136-145); UREA NITROGEN, BLOOD 16 mg/dL (7-18)
[2020-12-31 11:59] LABS: ALANINE AMINOTRANSFERASE 23 U/L (12-78); ALBUMIN 4.3 g/dL (3.4-5.0); ALKALINE PHOSPHATASE 127 U/L (46-116); ASPARTATE AMINOTRANSFERASE 15 U/L (15-37); BILIRUBIN,DIRECT 0.1 mg/dL (0.0-0.2); BILIRUBIN,TOTAL 0.4 mg/dL (0.2-1.0)
[2020-12-31 12:03] LABS: ACETAMINOPHEN 0 ug/ml (10-30); ALCOHOL, BLOOD < 3 mg/dL (0-0)
[2020-12-31 12:21] LABS: BILIRUBIN,URINE NEGATIVE (NEGATIVE); LEUKOCYTE ESTERASE ,URINE NEGATIVE (NEGATIVE); NITRITE, URINE NEGATIVE (NEGATIVE); PROTEIN,URINE NEGATIVE (NEGATIVE); UGLUCOSE NEGATIVE (NEGATIVE); UROBILINOGEN,URINE 0.2 EU/dL (0.2)
[2020-12-31 12:22] LABS: COLOR,URINE STRAW (YELLOW)
--- NOTE | 2020-12-31 12:45 | NUR ---
SW referred pt. to [facility] [[address] [place] [address] FAX:[phone]] for inpatient psychiatric treatment.
--- NOTE | 2020-12-31 12:50 | NUR ---
SS Consult: SS Consult requested for SI & Homelessness. The pt. is a 35- year old male who presents to Ed with C/O suicidal ideations with "plan to jump off of a plane". The pt. appears disheveled is A&O X4 and makes poor eye contact. Pt. appears disheveled and restless. Pt. has pressured speech and pt.'s mood is irritable, agitated w/ flat affect. Pt. states he came to the hospital because he has been having intermittent SI w/plan to cut his wrist for the past 3 days. Pt. denies hallucinations Pt. reports possible HI and did not specify an individual he is thinking of harming. SW offered pt. voluntary admission to a psych facility for treatment and pt. is agreeable. Pt. request [facility] referral. MARCELO explored pt.'s mental health Hx. Pt. denies Hx. of mental illness or use of psychotropic medications. SW explored pt.'s living situation. Pt. states he has been homeless for a "on & off for years". SW explored pt.'s drug & ETOH use. Patient stated he abuses "pharmaceutical drugs". SW provided addiction resources and pt. refused. Pt. states he is ambulatory. SW explored pt.'s support system. Pt. states he has no family or friends. Pt. denies receiving Food stamps, GR, SSI and disability benefits. Plan: MARCELO referred pt. to [facility] [[facility] [place] [address] FAX:[phone]] for inpatient psychiatric treatment. Pt. refused to signed homeless waiver and it was placed in the chart. MARCELO provided pt. with homeless, and mental health resources and he refused them : Year-round shelters: [place] [facility] [address] [place] [place] [address] ; [place] [facility] [address] [place] [address]; [place] [facility] [id number] [facility] [id number] Winter Shelters: [place] [facility] Provider: [facility] [place] Address: [facility] Felix [place], [facility] [place] # of Beds: 47 Population Served: [facility] SPA 6 | [facility] Julissa Gillette [place] Provider: Home at Last Address: [address] [place] [address], [address] # of Beds: 66 Population Served: [facility] Mehrdad [place] Provider: First to Serve Address: [address] [facility], [address] # of Beds: 56 Population Served: [facility] Guido [place] Provider: SS[facility] Address: [address] [facility], [address] # of Beds: 49 Population Served: [facility] SPA 8 | Maud [place] Provider: First to Serve Address: [address] [facility] Hospital[facility] [place], [address] # of Beds: 37 Population Served: [facility] Hygiene: [facility]: [address] [facility] ; [place] [facility] [address] [facility] ; [facility] 6902 [facility] [place] . Food Resources: [place] [facility] at [facility]- 5700 [facility]; Meet Each Need with Dignity ([facility]) [address] [facility]; [facility] Food Pantry 6540 [facility]; [facility] 8575 [facility]. Mental Health resources provided: [facility] [address] [place] [address] ; [facility] Health Center, Inc. [address] [facility] [address], [place] [address] ; [place] Jaleesa [facility] [address] [place] [address] ; [facility] [place] [address]: [facility] 6551 [facility], [address] [place]. [place] ; [facility] [address] [facility] [address] [facility] [address]; [facility] [address] [facility] [phone]) [phone] Counseling--Outpatient [facility] [address] [facility], [place] [address] (Specializes in in-depth psychotherapy for emotional distress: anxiety, depression, interpersonal conflicts, life transitions, childhood abuse) [facility] [address] [place] [address] (Assist with solving problem marital difficulties, separation & divorce, aging parents, & grief, chronic & terminal illness) [facility] [address] [place] [address] (Deal with loss & grief, anxiety, marital difficulties) Homebound/Mental Health Services [address] [facility], [address] [place] [address] (Provide in-home mental services to people who are incapable of leaving their homes) Organization for Needs of the Elderly Senior Service/Resource Center 03328 [facility] [place] [address] [facility] 6514 Casandra [facility] [place] [address] PSYCHIATRIC OUTPATIENT SERVICES [facility] Partial Hospitalization and Intensive Outpatient Program (Managed Care and [place] Only)17231 [facility]. [facility] [phone] [facility] Partial Hospitalization and Outpatient Fhmchem67736 [facility] [address] [place], [place] [phone] [facility] Mental Health Center Pfy53095 [facility] [address] [place], [place] [phone] [facility] Partial Hospitalization and Outpatient Ynzcthy77643 [place], [phone] Substance Abuse resources provided included: [facility] Substance Abuse Self-Helpline ([facility]) ; CRI -HELP 69586 [facility] [place]. [place] [address] ; [facility] [address]00 [facility] [address] ; [facility] Rehabilitation [facility] [address] [place] [facility] [phone] ; [facility] 400 [facility] [phone] ; [facility] 9785 Juno Perez [facility] [address] ; Rasheeda [facility] Emergency Department 902 [facility] Centervd[facility] [phone] ; [facility] Substance Abuse Helpline([facility])-[facility] ; [facility] Family Counseling ; [facility] [place]; Rasheeda [facility] Emergency Department [place]; Cri-Help [place]; I-ADA Inter Agency Drug Abuse Recovery Juno Perez; [facility] [place]; [facility]; [facility] [place]; [facility]'s [employer] [place]; Alcoholics Anonymous -SFV; Ar-Knnn-Gxznlfu ; Marijuana Anonymous -SFV; Narcotics Anonymous www.na.org;
--- NOTE | 2020-12-31 18:03 | NUR ---
RECEIVED A CALL FROM [place] FROM [facility]. WE CAN CALL REPORT TO [phone].
--- NOTE | 2020-12-31 18:08 | NUR ---
CALLED [facility] FOR TRANSPORT TO COUNTS INCLUDE [facility] BEDS AT [facility]. ETA 75-90 MINUTES.
--- NOTE | 2020-12-31 18:23 | NUR ---
report given to Osiris MATTSON for vasu.
--- NOTE | 2020-12-31 20:26 | NUR ---
[facility] IN FACILITY. REPORT GIVEN TO AMBULANCE STAFF. GIVEN CLINICALS. PT LEFT IN STABLE CONDITION
[2020-12-31 20:27] VITALS: BP 128/81
== END 2020-12-31 20:28 ==
LOC: ER 10:48
DX: R45.851 Suicidal ideations (principal); R45.850 Homicidal ideations; F25.9 Schizoaffective disorder, unspecified; F19.10 Other psychoactive substance abuse, uncomplicated; G89.29 Other chronic pain; Z79.899 Other long term (current) drug therapy; R03.0 Elevated blood-pressure reading, without diagnosis of hypertension; Z20.822 Contact with and (suspected) exposure to COVID-19
CPT/HCPCS: 36415; 80048; 80076; 80143; 80307; 80320; 81003; 85025; 87426; 99285; C9803; G0480

== ENCOUNTER 2021-01-10 20:53 | Emergency (ER) | payer OTHER ==
--- NOTE | 2021-01-10 22:19 | NUR ---
CALLED FOR TRIAGE, NOT IN WAITING ROOM
--- NOTE | 2021-01-10 22:45 | NUR ---
CALLED IN TRIAGE, NOT IN WAITING ROOM
--- NOTE | 2021-01-10 23:21 | NUR ---
PATIENT NOT IN WAITING ROOM.
== END 2021-01-10 23:22 | disposition home or self-care (01) ==
LOC: ER 20:58
DX: Z53.21 Procedure and treatment not carried out due to patient leaving prior to being seen by health care provider (principal)

== ENCOUNTER 2021-01-13 08:57 | Emergency (ER) | payer OTHER ==
[~2021-01-13] VITALS: Ht 152.4 cm; Wt 52.2 kg
--- NOTE | 2021-01-13 08:57 | NUR ---
PT BIB SELF C/O SI "I WANT TO JUMP OF THE PLANE" AND REQUESTING VOLUNTARY PSYCHE ADMISSION TO [facility]. PT IS AAOX4, NOT IN RESPIRATORY DISTRESS, V/S STABLE, KEPT RESTED AND COMFORTABLE. SITTER AT BEDSIDE. WILL CONTINUE TO MONITOR.
--- NOTE | 2021-01-13 09:00 | NUR ---
PT SEEN AND EXAMINED BY .
--- NOTE | 2021-01-13 09:17 | NUR ---
ER PHLEB AT BEDSIDE FOR BLOOD DRAW.
--- NOTE | 2021-01-13 09:30 | NUR ---
URINE SPECIMEN COLLECTED AND SENT TO LAB.
[2021-01-13 09:34] LABS: BASOPHILS # (AUTO) 0.1 K/uL (0.0-0.2); BASOPHILS % (AUTO) 1.2 % (0.0-2.0); EOSINOPHILS % (AUTO) 5.5 % (0.0-6.0); HEMATOCRIT 40 % (39-51); LYMPHOCYTES # (AUTO) 3.3 K/uL (0.8-4.8); LYMPHOCYTES % (AUTO) 36.3 % (20.0-44.0); MEAN CORPUSCULAR HGB CONC 33 g/dl (31.0-36.0); MEAN CORPUSCULAR VOLUME 84 fL (80-96); MONOCYTES % (AUTO) 10.6 % (2.0-12.0); NEUTROPHILS # (AUTO) 4.2 K/uL (1.8-8.9); NEUTROPHILS % (AUTO) 46.4 % (43.0-81.0); PLATELET COUNT (AUTO) 382 K/uL (150-450); RED BLOOD CELL COUNT(AUTO) 4.73 MIL/uL (4.5-6.0); WHITE BLOOD COUNT (AUTO) 9.1 K/uL (4.3-11.0)
[2021-01-13 09:49] LABS: BILIRUBIN,URINE Negative (NEGATIVE); COLOR,URINE YELLOW (YELLOW); LEUKOCYTE ESTERASE ,URINE Negative (NEGATIVE); NITRITE, URINE Negative (NEGATIVE); PH,URINE 5.5 (5.0-8.0); PROTEIN,URINE Negative (NEGATIVE); UGLUCOSE Negative (NEGATIVE); UROBILINOGEN,URINE 0.2 EU/dL (0.2)
[2021-01-13 09:58] LABS: CALCIUM, SERUM 9.5 mg/dL (8.5-10.1); CARBON DIOXIDE 30 mmol/L (21-32); CHLORIDE 100 mmol/L (98-107); CREATININE 0.7 mg/dL (0.6-1.3); GLUCOSE 89 mg/dL (74-106); POTASSIUM 3.6 mmol/L (3.5-5.1); SODIUM SERUM 138 mmol/L (136-145); UREA NITROGEN, BLOOD 19 mg/dL (7-18)
[2021-01-13 10:10] LABS: ACETAMINOPHEN < 0 ug/ml (10-30); ALANINE AMINOTRANSFERASE 22 U/L (12-78); ALBUMIN 4.3 g/dL (3.4-5.0); ALCOHOL, BLOOD < 3 mg/dL (0-0); ALKALINE PHOSPHATASE 128 U/L (46-116); ASPARTATE AMINOTRANSFERASE 26 U/L (15-37); BILIRUBIN,DIRECT 0.2 mg/dL (0.0-0.2); BILIRUBIN,TOTAL 0.6 mg/dL (0.2-1.0)
--- NOTE | 2021-01-13 11:25 | NUR ---
SS consult SS consult requested for pt with suicidal ideation. Pt is a 35-year-old, male. SW met with pt at the waiting room of the emergency department. Pt was alert and oriented x4. Pt presented with an irritable mood and anxious affect. Pt was requesting voluntary psychiatric admission. Pt was eating his lunch and appeared disheveled and ungroomed. Per chart, pt was brought in by self on 01/13/21 for suicidal ideation with a plan to "jump off a plane." Pt stated that he is currently homeless and has no current source of income. Pt reported that he has been homeless for the last 3 years. Pt stated that he currently has no access to social support. Pt denied current/hx of substance use. Per toxicology report, pt is positive for amphetamine. Pt denied hx of mental illness and hallucinations. Pt reported current SI, with a plan to jump off a plane. Pt denied HI. SW offered the pt resources for mental health and homelessness. Pt declined the resources and stated, "I already have a lot of them." Pt signed the homeless waiver and SW filed the waiver in the pt's chart. Pt requested voluntary psychiatric admission. SW will fax clinicals to [facility], , for review. PLAN: Pt requested voluntary psychiatric admission. SW will fax clinicals to [facility], , for review. No further SS intervention at this time, however, SW will remain available as needed. RESOURCES OFFERED: Year-round shelters: [place] [facility] [address] [place], [place] [phone] ; [facility] [facility] [address] [place] [address]; [facility] [facility] [id number] [facility] [address] SPA 4 | [facility] [place] Provider: First to Serve Address: [address], [address] # of Beds: 48 Population Served: [facility] Provider: First to Serve Address: 7600 [facility], [address] # of Beds: 73 Population Served: [facility] 6 | [facility] Provider: Home at Last Address: [address]68 [facility], [address] # of Beds: 63 Population Served: [facility] 3 | [facility] Provider: [facility] [place] Address: [address] [facility], [place], [address] # of Beds: 75 Population Served: [facility] SPA 8 | [facility] Provider: [facility] [place] Address: 4964 [facility], [address] # of Beds: 80 Population Served: [facility] SPA 1 | [facility] Provider: [facility] [place] Address: [address] [place] [address], [address] # of Beds: 85 Population Served: [facility] 2 | [facility] Provider: [facility] [place] Address: Confidential (please call for location) # of Beds: 52 Population Served: [facility] 4 | [facility] Provider: [facility] Address: [address] [facility], [address] # of Beds: 49 Population Served: [facility] Provider: First To Serve Address: [address] [place] [address], [address] # of Beds: 27 Population Served: [facility] Hygiene: [facility]: [address] Abimael Felix [place] ; [place] [facility] [address] [facility] ; [facility] 1083 Juno Adams . Food Resources: [place] Food Pantry at [facility]- 7744 [facility]; Meet Each Need with Dignity ([facility]) [address]505 [facility]; [facility] Food Pantry 6136 [facility]; [facility] 4305 [facility]. Mental Health resources provided: [facility] [address] [place] [address] ; [facility] Mental Health [facility], Inc. [address] [facility] [address], [place], [place] [phone] ; [facility] Urgent Care Center [address] [place] [address] ; [facility] [address] [place], [place] [id number] Healthcare Clinics: [facility] 6551 [facility], [address] [place]. [place] ; [facility] [employer] 6801 [facility] [address] [place] [address]; [facility] [address] [facility] [phone] Counseling--Outpatient [facility] 4419 [facility], [place] [address] (Specializes in in-depth psychotherapy for emotional distress: anxiety, depression, interpersonal conflicts, life transitions, childhood abuse) PSYCHIATRIC OUTPATIENT SERVICES [facility] Partial Hospitalization and Intensive Outpatient Program (Managed Care and [place] Only) [address] [place] [facility] 688168 [facility] Partial Hospitalization and Outpatient Program [address] [place], [place] [phone] [facility] Partial Hospitalization and Outpatient Program 4911 Van Terrikarlo [facility]. [place], [place] [phone] Critical access hospital Mental Health [facility] 10965 [facility]. [address] [place], [place] [address] [facility] Partial Hospitalization and Outpatient Program [address] [place], [place] [phone]
--- NOTE | 2021-01-13 11:30 | NUR ---
SS note Per pt's request for voluntary psychiatric placement, SW faxed clinicals to [facility], , for review.
--- NOTE | 2021-01-13 13:21 | NUR ---
CALLED [facility] ETA 60 MINS.
--- NOTE | 2021-01-13 14:10 | NUR ---
REPORT GIVEN TO EMS FOR PT TRANSFER TO [facility].
--- NOTE | 2021-01-13 14:41 | NUR ---
[facility] AFTER [address] MANNING PLEASE CALL [phone] FOR REPORT.
[2021-01-13 15:45] VITALS: BP 141/84
== END 2021-01-13 15:56 ==
LOC: ER 09:01
DX: R45.851 Suicidal ideations (principal); F19.10 Other psychoactive substance abuse, uncomplicated; F25.9 Schizoaffective disorder, unspecified; Z88.6 Allergy status to analgesic agent; Z79.899 Other long term (current) drug therapy; Z91.14 Patient's other noncompliance with medication regimen; Z59.0 Homelessness; Z20.822 Contact with and (suspected) exposure to COVID-19; G89.29 Other chronic pain
CPT/HCPCS: 36415; 80048; 80076; 80143; 80307; 80320; 81003; 85025; 87426; 99285; C9803; G0480

== ENCOUNTER 2021-01-31 07:17 | Emergency (ER) | payer OTHER ==
[~2021-01-31] VITALS: Ht 160 cm; Wt 56.7 kg
[2021-01-31 07:35] VITALS: BP 115/90
--- NOTE | 2021-01-31 07:35 | NUR ---
PT SELF PRESENTS TO ED. STEADY GAIT. C/O "BEING DEPRESSED AND SUICIDAL W. PLAN PLAN TO JUMP OFF A PLANE" PT SEEN IN ED MULTIPLE TIME FOR PSYCHIATRIC REASONS. PT IS AAOX3, DENIES HI. STABLE VITALS.AWAITING MD ESTRADA.
--- NOTE | 2021-01-31 07:40 | NUR ---
DR BLAKE AT BEDSIDE FOR EVAL.
--- NOTE | 2021-01-31 08:13 | NUR ---
URINE SENT TO LAB
--- NOTE | 2021-01-31 08:14 | NUR ---
COVID SWAB DONE AND SENT TO LAB
--- NOTE | 2021-01-31 08:18 | NUR ---
CLINICAL TRANSPLANT COORDINATOR AT BEDSIDE F0R BLOOD DRAW.
[2021-01-31 08:48] LABS: BASOPHILS # (AUTO) 0.2 K/uL (0.0-0.2); BASOPHILS % (AUTO) 2.4 % (0.0-2.0); HEMATOCRIT 42 % (39-51); HEMOGLOBIN 13.6 g/dL (13.5-17.5); LYMPHOCYTES # (AUTO) 1.8 K/uL (0.8-4.8); LYMPHOCYTES % (AUTO) 21.7 % (20.0-44.0); MEAN CORPUSCULAR HGB CONC 33 g/dl (31.0-36.0); MEAN CORPUSCULAR VOLUME 84 fL (80-96); MONOCYTES # (AUTO) 0.7 K/uL (0.1-1.30); MONOCYTES % (AUTO) 8.8 % (2.0-12.0); NEUTROPHILS # (AUTO) 5.5 K/uL (1.8-8.9); NEUTROPHILS % (AUTO) 65.1 % (43.0-81.0); PLATELET COUNT (AUTO) 460 K/uL (150-450); RED BLOOD CELL COUNT(AUTO) 4.93 MIL/uL (4.5-6.0); WHITE BLOOD COUNT (AUTO) 8.5 K/uL (4.3-11.0)
[2021-01-31 08:55] LABS: BILIRUBIN,URINE Negative (NEGATIVE); COLOR,URINE YELLOW (YELLOW); LEUKOCYTE ESTERASE ,URINE Negative (NEGATIVE); NITRITE, URINE Negative (NEGATIVE); PROTEIN,URINE Negative (NEGATIVE); UGLUCOSE Negative (NEGATIVE); UROBILINOGEN,URINE 0.2 EU/dL (0.2)
[2021-01-31 08:59] LABS: ALANINE AMINOTRANSFERASE 28 U/L (12-78); ALBUMIN 4.7 g/dL (3.4-5.0); ALCOHOL, BLOOD < 3 mg/dL (0-0); ALKALINE PHOSPHATASE 130 U/L (46-116); ASPARTATE AMINOTRANSFERASE 31 U/L (15-37); BILIRUBIN,DIRECT 0.1 mg/dL (0.0-0.2); BILIRUBIN,TOTAL 0.6 mg/dL (0.2-1.0); CALCIUM, SERUM 9.8 mg/dL (8.5-10.1); CARBON DIOXIDE 33 mmol/L (21-32); CHLORIDE 101 mmol/L (98-107); CREATININE 0.9 mg/dL (0.6-1.3); GLUCOSE 78 mg/dL (74-106); POTASSIUM 3.7 mmol/L (3.5-5.1); SODIUM SERUM 141 mmol/L (136-145); TOTAL PROTEIN, SERUM 8.8 g/dL (6.4-8.2); UREA NITROGEN, BLOOD 22 mg/dL (7-18)
[2021-01-31 09:00] LABS: ACETAMINOPHEN 0 ug/ml (10-30)
[2021-01-31 09:14] LABS: RBC,URINE 0-2 /HPF (0-2)
[2021-01-31 09:15] LABS: BACTERIA,URINE Few /HPF (None Seen); SPERM,URINE Few /HPF (None Seen); SQUAMOUS EPITHELIAL CELL,UR Few /HPF (None Seen); WBC,URINE 0-2 /HPF (0-3)
--- NOTE | 2021-01-31 10:45 | NUR ---
FAXED CLINICALS TO [facility] INTAKE
--- NOTE | 2021-01-31 12:41 | NUR ---
TRANSFER INFO: PT ACCEPTED AT [facility] BY DR HILTON, RN FOR REPORT [phone], TRANSFER AFTER 1400
--- NOTE | 2021-01-31 14:26 | NUR ---
REPORT YISSEL LEBLANC RN AT [facility]. PATIENT TRANSFERRED IN STABLE CONDITION.
== END 2021-01-31 14:27 ==
LOC: EDBD → ER 07:22
DX: R45.851 Suicidal ideations (principal); F17.210 Nicotine dependence, cigarettes, uncomplicated; F25.9 Schizoaffective disorder, unspecified; G89.4 Chronic pain syndrome; F19.10 Other psychoactive substance abuse, uncomplicated; Z79.899 Other long term (current) drug therapy; Z20.822 Contact with and (suspected) exposure to COVID-19
CPT/HCPCS: 36415; 80048; 80076; 80143; 80307; 80320; 81001; 85025; 87426; 99285; C9803; G0480

== ENCOUNTER 2021-02-10 20:18 | Emergency (ER) | payer OTHER ==
[~2021-02-10] VITALS: Ht 160 cm; Wt 65.8 kg
--- NOTE | 2021-02-10 21:33 | NUR ---
PT BIBSELF C/O SI AND HI. WITH PLAN TO JUMP OFF A PLANE. PT ALERT AND ORIENTED X2. AMBULATORY WITH NON LABORED BREATHING. PT IS PLACED ON MONITOR AND ALL BELONGINGS COLLECTED FROM HIM.
[2021-02-10 22:27] LABS: BILIRUBIN,URINE NEGATIVE (NEGATIVE); COLOR,URINE YELLOW (YELLOW); LEUKOCYTE ESTERASE ,URINE NEGATIVE (NEGATIVE); NITRITE, URINE NEGATIVE (NEGATIVE); PH,URINE 6.5 (5.0-8.0); PROTEIN,URINE NEGATIVE (NEGATIVE); UGLUCOSE NEGATIVE (NEGATIVE); UROBILINOGEN,URINE 0.2 EU/dL (0.2)
--- NOTE | 2021-02-10 22:42 | NUR ---
PT DENIES SI AND HI. REQUESTED TO LEAVE ED.
[2021-02-10 22:43] VITALS: BP 122/69
== END 2021-02-10 22:43 | disposition home or self-care (01) ==
LOC: EDBD → ER 20:23
DX: F32.A Depression, unspecified (principal); Z53.29 Procedure and treatment not carried out because of patient's decision for other reasons; Z20.822 Contact with and (suspected) exposure to COVID-19
CPT/HCPCS: 80307; 81003; 87426; 99283; C9803

== ENCOUNTER 2021-02-12 11:03 | Emergency (ER) | payer OTHER ==
[~2021-02-12] VITALS: Ht 160 cm; Wt 45.4 kg
[2021-02-12 11:35] LABS: BASOPHILS # (AUTO) 0.1 K/uL (0.0-0.2); BASOPHILS % (AUTO) 1.3 % (0.0-2.0); EOSINOPHILS % (AUTO) 3.3 % (0.0-6.0); HEMATOCRIT 37 % (39-51); LYMPHOCYTES % (AUTO) 28.1 % (20.0-44.0); MEAN CORPUSCULAR HGB CONC 33 g/dl (31.0-36.0); MEAN CORPUSCULAR VOLUME 85 fL (80-96); MONOCYTES # (AUTO) 0.7 K/uL (0.1-1.30); NEUTROPHILS % (AUTO) 57.3 % (43.0-81.0); PLATELET COUNT (AUTO) 385 K/uL (150-450); RED BLOOD CELL COUNT(AUTO) 4.33 MIL/uL (4.5-6.0); WHITE BLOOD COUNT (AUTO) 7.1 K/uL (4.3-11.0)
[2021-02-12 11:41] LABS: BILIRUBIN,URINE Negative (NEGATIVE); COLOR,URINE YELLOW (YELLOW); LEUKOCYTE ESTERASE ,URINE Negative (NEGATIVE); NITRITE, URINE Negative (NEGATIVE); PH,URINE 6.5 (5.0-8.0); PROTEIN,URINE Negative (NEGATIVE); UGLUCOSE Negative (NEGATIVE); UROBILINOGEN,URINE 0.2 EU/dL (0.2)
[2021-02-12 11:43] LABS: CALCIUM, SERUM 9.2 mg/dL (8.5-10.1); CARBON DIOXIDE 29 mmol/L (21-32); CHLORIDE 103 mmol/L (98-107); CREATININE 0.9 mg/dL (0.6-1.3); GLUCOSE 82 mg/dL (74-106); POTASSIUM 3.5 mmol/L (3.5-5.1); SODIUM SERUM 140 mmol/L (136-145); UREA NITROGEN, BLOOD 12 mg/dL (7-18)
[2021-02-12 11:49] LABS: ALANINE AMINOTRANSFERASE 30 U/L (12-78); ALBUMIN 4.3 g/dL (3.4-5.0); ALKALINE PHOSPHATASE 119 U/L (46-116); ASPARTATE AMINOTRANSFERASE 31 U/L (15-37); BILIRUBIN,DIRECT 0.2 mg/dL (0.0-0.2); BILIRUBIN,TOTAL 0.5 mg/dL (0.2-1.0); TOTAL PROTEIN, SERUM 7.7 g/dL (6.4-8.2)
[2021-02-12 11:51] LABS: ACETAMINOPHEN < 10 ug/ml (10-30); ALCOHOL, BLOOD < 3 mg/dL (0-0)
[2021-02-12 11:53] LABS: BACTERIA,URINE None seen /HPF (None Seen); SQUAMOUS EPITHELIAL CELL,UR None Seen /HPF (None Seen); WBC,URINE NONE SEEN /HPF (0-3)
--- NOTE | 2021-02-12 12:05 | NUR ---
COVID SWAB DONE AND SENT TO THE LAB
--- NOTE | 2021-02-12 16:15 | NUR ---
FAXED CLINICALS TO [facility] INTAKE.
[2021-02-12] MEDS ORDERED: OLANZAPINE 10 MG VIAL IM ONE ×2 (16:38→17:00)
--- NOTE | 2021-02-12 17:00 | NUR ---
ZYPREXA 10 MG IM ONCE PER DR WARD. THE ORDER IS READ BACK, VERIFIED. NOTED AND CARRIED OUT.
--- NOTE | 2021-02-12 18:02 | NUR ---
CALLED KINJAL VALLES PT ACCEPTED TO [facility] UNDER DR. HILTON CALL [phone] X [phone] FOR REPORT AFTER 1929
--- NOTE | 2021-02-12 18:03 | NUR ---
[facility] CALLED FOR ETA OF 1929
--- NOTE | 2021-02-12 18:13 | NUR ---
REPORT GIVEN TO NURSE PAULIE FROM SONAL DONALD
[2021-02-12 18:21] VITALS: BP 133/85
--- NOTE | 2021-02-12 18:59 | NUR ---
THE PATIENT SLEEPING IN ER BED 18. RESPONSIVE TO VERBAL STIMULI. RESPIRATION REGULAR AND UNLABORED. THE PATIENT IS IN NO APPARENT DISTRESS.
--- NOTE | 2021-02-12 19:16 | NUR ---
REPORT GIVEN TO NURSE PRESTON FOR PING
--- NOTE | 2021-02-12 19:16 | NUR ---
REC'D REPORT FROM TWILA MELENDEZ FOR PING
--- NOTE | 2021-02-12 20:02 | NUR ---
REPORT GIVEN TO EMS
== END 2021-02-12 21:06 ==
LOC: EDUNIT# 11:03 → ER 11:05
DX: R45.851 Suicidal ideations (principal); F15.10 Other stimulant abuse, uncomplicated; F25.9 Schizoaffective disorder, unspecified; F19.10 Other psychoactive substance abuse, uncomplicated; G89.29 Other chronic pain; Z88.8 Allergy status to other drugs, medicaments and biological substances; F17.200 Nicotine dependence, unspecified, uncomplicated
CPT/HCPCS: 36415; 80048; 80076; 80143; 80307; 80320; 81001; 85025; 87426; 96372; 99285; C9803; J3490; G0480